=== PATIENT | female | born 1955 | race Caucasian/White ===

== ENCOUNTER → 2016-04-11 | Outpatient (CLI) | payer OTHER | LOC: FIMAGING 16:00 | PROVIDERS: ATTEND Family Medicine | DX: R91.8 Other nonspecific abnormal finding of lung field (principal); Z85.42 Personal history of malignant neoplasm of other parts of uterus ==

== ENCOUNTER → 2016-04-18 | Outpatient (CLI) | payer OTHER ==
[~2016-04-18] MED LIST: IOPAMIDOL (ISOVUE-300) 100 ML BTL IV ONE
== END ==
LOC: FIMAGING 08:30
PROVIDERS: ATTEND Family Medicine
DX: R91.8 Other nonspecific abnormal finding of lung field (principal); J90 Pleural effusion, not elsewhere classified
CPT/HCPCS: Q9967

== ENCOUNTER 2016-04-27 06:47 | Day surgery (SDC) | payer OTHER ==
[2016-04-27] MEDS ORDERED: NS 1,000 ML IV SCH (07:15)
[2016-04-27 07:36] LABS: HEMATOCRIT 42.3 % (38.0-47.0)
[2016-04-27 07:49] LABS: APTT 29.2 SEC (23.0-38.0); INR 0.96 (0.83-1.16); PROTIME(PATIENT) 12.7 SEC (12.0-15.0)
[2016-04-27] MEDS ORDERED: FLUMAZENIL 0.5 MG/5 ML MDV IVP ONE (08:25)
[2016-04-27] MEDS ORDERED: fentaNYL 100 MCG/2 ML INJ ONE (08:26)
[2016-04-27] MEDS ORDERED: NALOXONE HCL 0.4 MG/ML INJ ONE (08:26)
[2016-04-27] MEDS ORDERED: ONDANSETRON 4 MG/2 ML VIAL ONE (08:26)
[2016-04-27] MEDS ORDERED: MIDAZOLAM 2 MG/2 ML VIAL ONE (08:27)
[2016-04-27] MEDS ORDERED: LIDOCAINE 1% 30 ML SDV ONE (08:29)
[2016-04-27] MEDS ORDERED: HYDROCODONE/APAP 5/325 TAB PO PRN (10:56)
[2016-04-27] MEDS ORDERED: ONDANSETRON 4 MG/2 ML VIAL IVP PRN (10:56)
== END 2016-04-27 13:05 | disposition home or self-care (01) ==
LOC: FIMAGING 06:47
PROVIDERS: ATTEND Radiology Diagnostic Radiology
PROC: 0BBF3ZX Excision of Right Lower Lung Lobe, Percutaneous Approach, Diagnostic (ICD-10-PCS; principal; 2016-04-27 10:15)
DX: C7A.1 Malignant poorly differentiated neuroendocrine tumors (principal); C78.00 Secondary malignant neoplasm of unspecified lung; Z85.42 Personal history of malignant neoplasm of other parts of uterus
CPT/HCPCS: J2250; J2310; J2405; J3010

== ENCOUNTER → 2016-05-01 | Outpatient (CLI) | payer OTHER | LOC: FIMAGING 08:45 | PROVIDERS: ATTEND Family Medicine | DX: C78.01 Secondary malignant neoplasm of right lung (principal); R13.10 Dysphagia, unspecified; I70.0 Atherosclerosis of aorta; Z85.9 Personal history of malignant neoplasm, unspecified | CPT/HCPCS: Q9967 ==

== ENCOUNTER → 2016-05-05 | Day surgery (SDC) | payer OTHER | END | disposition home or self-care (01) | LOC: FIMAGING 13:16 | PROVIDERS: ATTEND Internal Medicine Hematology & Oncology | PROC: 02HV33Z Insertion of Infusion Device into Superior Vena Cava, Percutaneous Approach (ICD-10-PCS; principal; 2016-05-05) | DX: C34.90 Malignant neoplasm of unspecified part of unspecified bronchus or lung (principal) | CPT/HCPCS: 36569; 77001; C1751 ==

== ENCOUNTER → 2016-05-05 | Outpatient (CLI) | payer OTHER ==
[~2016-05-05] MED LIST changes: +GADOBUTROL 10 ML VIAL IVP ONE; -IOPAMIDOL (ISOVUE-300) 100 ML BTL IV ONE
== END ==
LOC: FIMAGING 16:53
PROVIDERS: ATTEND Internal Medicine Hematology & Oncology
DX: C79.89 Secondary malignant neoplasm of other specified sites (principal); C34.90 Malignant neoplasm of unspecified part of unspecified bronchus or lung
CPT/HCPCS: A9585

== ENCOUNTER 2016-05-25 09:17 | Day surgery (SDC) | payer OTHER ==
[~2016-05-25 09:17] MED LIST changes: +CEFAZOLIN 2 GM/DEXTROSE/100 ML BAG IV ONE; -GADOBUTROL 10 ML VIAL IVP ONE; +LIDOCAINE 1% 2 ML INJ ONE; +ceFAZolin 2 GM/DEXTROSE 100 ML IV ONE
[2016-05-25] MEDS ORDERED: BUPIVACAINE 0.5% 30 ML SDV ONE (09:23)
[2016-05-25] MEDS ORDERED: SODIUM BICARBONATE 10 MEQ/10 ML SYR IVP ONE (09:23)
[2016-05-25] MEDS ORDERED: LIDOCAINE 1% 30 ML SDV ONE (09:23)
[2016-05-25 09:45] LABS: ADD DIFF? YES; ADD MORPH? NO; ATYPICAL LYMPHOCYTE FLAG 0 (0-99); FRAGMENT RBC FLAG 0 (0-99); HEMATOCRIT 38.3 % (38.0-47.0); HEMOGLOBIN 12.7 g/dL (12.6-16.3); LEFT SHIFT FLG 10 (0-99); LIPEMIA HEMOLYSIS FLAG 80 (0-99); MEAN CELL HEMOGLOBIN 28.5 pg (27.9-34.1); MEAN CELL HEMOGLOBIN CONCENTR. 33.2 g/dL (32.4-36.7); MEAN CELL VOLUME 86.1 fL (81.5-99.8); MEAN PLATELET VOLUME 8.9 fL (8.7-11.7); PLATELET CLUMPS FLAG 0 (0-99); PLATELET COUNT 303 10^3/uL (150-400); RED BLOOD CELL COUNT 4.45 10^6/uL (4.18-5.33); RED CELL DISTRIBUTION WIDTH 13.9 % (11.5-15.2)
[2016-05-25 09:49] LABS: ADD SCAN? NO; SCAN NEGATIVE
[2016-05-25] MEDS ORDERED: PROPOFOL 200 MG/20 ML VIAL ONE ×2 (10:38→11:30)
[2016-05-25] MEDS ORDERED: fentaNYL 100 MCG/2 ML INJ ONE ×2 (10:38→12:23)
[2016-05-25] MEDS ORDERED: CEFAZOLIN 1 GM/DEXTROSE/50 ML BAG IV ONE (12:17)
[2016-05-25 12:57] LABS: PLATELET ESTIMATE ADEQUATE (ADEQ)
[2016-05-25 13:02] LABS: LARGE PLATELETS PRESENT
== END 2016-05-25 14:10 | disposition home or self-care (01) ==
LOC: FSGY 09:17
PROVIDERS: ATTEND Surgery
PROC: 02HV33Z Insertion of Infusion Device into Superior Vena Cava, Percutaneous Approach (ICD-10-PCS; principal; 2016-05-25 11:00)
DX: C7A.8 Other malignant neuroendocrine tumors (principal); K21.9 Gastro-esophageal reflux disease without esophagitis; E78.5 Hyperlipidemia, unspecified; G47.00 Insomnia, unspecified; E22.2 Syndrome of inappropriate secretion of antidiuretic hormone; Z85.42 Personal history of malignant neoplasm of other parts of uterus
CPT/HCPCS: C1788; J0690; J1642; J2704; J3010

== ENCOUNTER → 2016-07-05 | Outpatient (CLI) | payer OTHER ==
[~2016-07-05] MED LIST changes: -CEFAZOLIN 2 GM/DEXTROSE/100 ML BAG IV ONE; +IOPAMIDOL (ISOVUE-300) 100 ML BTL ONE; -LIDOCAINE 1% 2 ML INJ ONE; -ceFAZolin 2 GM/DEXTROSE 100 ML IV ONE
== END ==
LOC: FIMAGING 09:35
PROVIDERS: ATTEND Nurse Practitioner
DX: C79.51 Secondary malignant neoplasm of bone (principal); K57.30 Diverticulosis of large intestine without perforation or abscess without bleeding; I70.0 Atherosclerosis of aorta; C54.1 Malignant neoplasm of endometrium; Z85.118 Personal history of other malignant neoplasm of bronchus and lung; Z92.21 Personal history of antineoplastic chemotherapy
CPT/HCPCS: J1642; Q9967

== ENCOUNTER → 2016-09-07 | Outpatient (CLI) | payer OTHER | LOC: FIMAGING 15:52 | PROVIDERS: ATTEND Nurse Practitioner | DX: Z08 Encounter for follow-up examination after completed treatment for malignant neoplasm (principal); C79.51 Secondary malignant neoplasm of bone; R91.8 Other nonspecific abnormal finding of lung field; Z92.21 Personal history of antineoplastic chemotherapy; Z85.118 Personal history of other malignant neoplasm of bronchus and lung; Z85.42 Personal history of malignant neoplasm of other parts of uterus; Z87.891 Personal history of nicotine dependence | CPT/HCPCS: Q9967 ==

== ENCOUNTER → 2016-10-03 | Outpatient (CLI) | payer OTHER | LOC: FIMAGING 13:56 → EDSTATUS 13:57 | PROVIDERS: ATTEND Internal Medicine Hematology & Oncology | DX: S42.254A Nondisplaced fracture of greater tuberosity of right humerus, initial encounter for closed fracture (principal); Z85.118 Personal history of other malignant neoplasm of bronchus and lung; Z85.42 Personal history of malignant neoplasm of other parts of uterus ==

== ENCOUNTER → 2016-11-17 | Outpatient (CLI) | payer OTHER | LOC: FIMAGING 08:44 | PROVIDERS: ATTEND Internal Medicine Hematology & Oncology | DX: C79.51 Secondary malignant neoplasm of bone (principal); C54.1 Malignant neoplasm of endometrium; C78.01 Secondary malignant neoplasm of right lung | CPT/HCPCS: 71260; 74177; 78306; A9503; Q9967 ==

== ENCOUNTER → 2017-02-15 | Outpatient (CLI) | payer OTHER ==
[~2017-02-15] MED LIST changes: +GADOBUTROL 10 ML VIAL IVP ONE; -IOPAMIDOL (ISOVUE-300) 100 ML BTL ONE
== END ==
LOC: FIMAGING 15:12
PROVIDERS: ATTEND Internal Medicine Hematology & Oncology
DX: C34.31 Malignant neoplasm of lower lobe, right bronchus or lung (principal); C79.31 Secondary malignant neoplasm of brain; C54.1 Malignant neoplasm of endometrium; G93.5 Compression of brain
CPT/HCPCS: A9585

== ENCOUNTER → 2017-04-03 | Outpatient (CLI) | payer OTHER ==
[~2017-04-03] MED LIST changes: -GADOBUTROL 10 ML VIAL IVP ONE; +IOPAMIDOL (ISOVUE-300) 100 ML BTL ONE
== END ==
LOC: FIMAGING 14:08
PROVIDERS: ATTEND Internal Medicine Hematology & Oncology
DX: C34.31 Malignant neoplasm of lower lobe, right bronchus or lung (principal); C54.1 Malignant neoplasm of endometrium; C79.51 Secondary malignant neoplasm of bone; R59.1 Generalized enlarged lymph nodes; J98.11 Atelectasis
CPT/HCPCS: Q9967

== ENCOUNTER → 2017-05-18 | Outpatient (CLI) | payer OTHER ==
[~2017-05-18] MED LIST changes: +GADOBUTROL 10 ML VIAL IVP ONE
== END ==
LOC: FIMAGING 14:37
PROVIDERS: ATTEND Internal Medicine Hematology & Oncology
DX: Z08 Encounter for follow-up examination after completed treatment for malignant neoplasm (principal); C79.31 Secondary malignant neoplasm of brain; C79.82 Secondary malignant neoplasm of genital organs; C34.31 Malignant neoplasm of lower lobe, right bronchus or lung; Z79.899 Other long term (current) drug therapy
CPT/HCPCS: A9585; Q9967

== ENCOUNTER → 2017-08-10 | Outpatient (CLI) | payer OTHER ==
[~2017-08-10] MED LIST changes: -GADOBUTROL 10 ML VIAL IVP ONE
== END ==
LOC: FIMAGING 13:05
PROVIDERS: ATTEND Internal Medicine Hematology & Oncology
DX: I26.99 Other pulmonary embolism without acute cor pulmonale (principal); R59.9 Enlarged lymph nodes, unspecified; C79.51 Secondary malignant neoplasm of bone; C54.1 Malignant neoplasm of endometrium; C34.31 Malignant neoplasm of lower lobe, right bronchus or lung
CPT/HCPCS: Q9967

== ENCOUNTER → 2017-10-19 | Outpatient (CLI) | payer OTHER | LOC: FIMAGING 11:36 | PROVIDERS: ATTEND Internal Medicine Hematology & Oncology | DX: C54.1 Malignant neoplasm of endometrium (principal); C34.31 Malignant neoplasm of lower lobe, right bronchus or lung | CPT/HCPCS: Q9967 ==

== ENCOUNTER → 2017-12-19 | Outpatient (CLI) | payer OTHER | LOC: FIMAGING 09:11 | PROVIDERS: ATTEND Internal Medicine Hematology & Oncology | DX: R91.1 Solitary pulmonary nodule (principal); C34.31 Malignant neoplasm of lower lobe, right bronchus or lung; C77.1 Secondary and unspecified malignant neoplasm of intrathoracic lymph nodes; C79.51 Secondary malignant neoplasm of bone; C54.1 Malignant neoplasm of endometrium; K76.89 Other specified diseases of liver ==

== ENCOUNTER 2018-02-03 15:22 | Inpatient (IN) | payer OTHER ==
--- NOTE | 2018-02-03 15:46 | EDPHY ---
HPI/HX/ROS/PE/MDM Narrative: CHIEF COMPLAINT: Lethargy, weakness HISTORY OF PRESENT ILLNESS: The patient is an anticoagulated 62 y/o female with a history of metastatic lung cancer currently treated with Opdivo infusions arriving with her complaining of pronounced weakness and lethargy upon waking this morning. She was diagnosed with lung cancer in March of 2016 and subsequent scans showed metastases to bone and brain. She has undergone multiple rounds of chemotherapy and started twice monthly Opdivo infusions this October. She says the Opdivo "has gotten rid of all the tumors. " At her last infusion appointment on , 3 days ago, her BGL was elevated in the 400s when it is usually in the 80s. Her oncologist, Dr. Gonzalez, said diabetes is a rare side effect of Opdivo treatment and started her on Metformin at that time. She is scheduled to follow up with him in 2 days. Today , she says, "I got up and just felt horrible. I feel like I had the cancer again. I was weak. I couldn't get down the stairs." She generally has difficulty eating, but has not been able to eat or drink much at all today. She has a mild, "loose" cough in the mornings "that lasts two seconds" and denies fever or any infectious symptoms. She did have a headache this morning that improved with Tylenol. Otherwise she denies any acute severe pain. She has baseline pain in her hips, ribs, and back. Her notes the patient has been obsessive and anxious since the diabetes diagnosis and he thinks that could be contributing to her symptoms today. She did get a flu vaccination this season. She mentions her liver enzymes have been "weird" during the last several lab draws. Prior to cancer diagnosis, no history of hypertension, diabetes, respiratory disease, cardiac disease. No fever, chills, chest pain, shortness of breath, palpitations, vomiting, black or tarry stools, urinary complaints, headache, lightheadedness, acute weakness or paresthesias. No falls or recent trauma. REVIEW OF SYSTEMS: Aside from elements discussed in the HPI, a comprehensive 10-point review of systems was reviewed and is negative. Issues with constipation and diarrhea depending on which medications she is taking. 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 Oncologist: Dr. Gonzalez, previously Dr. Beasley. Prior medical records reviewed including recent [facility] labs and chest CT . VITAL SIGNS: Reviewed by me GENERAL: Well-developed, well-nourished, resting comfortably in no respiratory distress. HEENT: Atraumatic. Eyes: No icterus, no injection. Mouth: moist mucous membranes. No erythema or lesions. Neck: supple with no adenopathy. LUNGS: Clear to auscultation bilaterally, no wheezes, rhonchi or rales. CARDIAC: Regular rate and rhythm, no rubs, murmurs or gallops. ABDOMEN: Soft, nontender, nondistended, bowel sounds normal. BACK: No CVA tenderness. EXTREMITIES: No trauma. No edema. Range of motion is normal throughout. NEURO: Alert and oriented, grossly nonfocal. SKIN: Warm and dry, no rash. PSYCHIATRIC: Normal mentation, no agitation. Portions of this note were transcribed by a medical services assistant. I personally performed a history, physical exam, medical decision making, and confirmed accuracy of information the transcribed note. ED Course: This is a 62 y/o female with lung cancer currently treated with Opdivo immunotherapy who presents with lethargy, weakness, and fatigue onset this morning. She was diagnosed with Opdivo-induced diabetes 3 days ago and started on metformin by her oncologist at that time. She has a normal neurologic exam here. No overt signs of infection. Presentation could reflect side effect of the metformin or complication of her cancer. Infectious causes also considered. Plan for IV, labs, UA, flu swab, EKG. The 12 lead EKG was interpreted by myself. Nonspecific Twave abnormaliies.. See hard copy and/or "tracemaster" electronic copy for interpretation. BGL elevated at 408. 8 units SQ insulin ordered. Consulted with [employer] sales consultant oncologist for CC. Opdivo can cause autoimmune insulin- dependent diabetes and patient will require insulin for further management. He recommends admission. Reassessed patient and discussed recommendations. She agrees to admission. Spoke with hospitalist service. Dr. Gallego accepts admission. She would like us to start DKA protocol here. MDM: Diff dx considered included viral infection, electrolyte abnormality, neutropenia, hyperglycemia, DKA, acidosis, metastatic CA, medication side effect. - Data Points Laboratory Results: Laboratory Results 02/03/18 16:00 02/03/18 16:00 02/03/18 02/03/18 02/03/18 17:00 16:20 16:02 WBC RBC Hgb POC Hgb 16.0 gm/dL gm/dL (12.6-16.3) Hct POC Hct 47 % % (38-47) MCV MCH MCHC RDW Plt Count MPV Neut % (Auto) Lymph % (Auto) [place] % (Auto) Eos % (Auto) Baso % (Auto) Nucleat RBC Rel Count Absolute Neuts (auto) Absolute Lymphs (auto) Absolute Monos (auto) Absolute Eos (auto) Absolute Basos (auto) Absolute Nucleated RBC Immature Gran % Immature Gran # PT INR POC Sodium 132 mEq/L L mEq/L (135-145) Sodium POC Potassium 3.9 mEq/L mEq/L (3.3-5.0) Potassium POC Chloride 95 mEq/L L mEq/L (97-110) Chloride Carbon Dioxide Anion Gap POC BUN 11 mg/dL mg/dL (7-23) BUN Creatinine POC Creatinine 0.7 mg/dL mg/dL (0.6-1.0) Estimated GFR Glucose POC Glucose 408 mg/dL H mg/dL (70-100) Calcium Magnesium Total Bilirubin Conjugated Bilirubin Unconjugated Bilirubin AST ALT Alkaline Phosphatase Troponin I Total Protein Albumin Lipase Urine Color PALE YELLOW Urine Appearance CLEAR Urine pH 5.0 (5.0-7.5) Ur Specific [place] 1.009 (1.002-1.030) Urine Protein NEGATIVE (NEGATIVE) Urine Ketones 2+ H (NEGATIVE) Urine Blood NEGATIVE (NEGATIVE) Urine Nitrate NEGATIVE (NEGATIVE) Urine Bilirubin NEGATIVE (NEGATIVE) Urine Urobilinogen NEGATIVE EU EU (0.2-1.0) Ur Leukocyte Esterase NEGATIVE (NEGATIVE) Urine RBC 1-3 /hpf /hpf (0-3) Urine WBC 1-3 /hpf /hpf (0-3) Ur Epithelial Cells TRACE /lpf /lpf (NONE-1+) Urine Bacteria TRACE /hpf H /hpf (NONE SEEN) Urine Mucus TRACE /lpf /lpf (NONE-1+) Urine Glucose 3+ H (NEGATIVE) Nasal Influenza A PCR NEGATIVE FOR FLU A (NEGATIVE) Nasal Influenza B PCR NEGATIVE FOR FLU B (NEGATIVE) 02/03/18 02/03/18 02/03/18 16:00 16:00 16:00 WBC 5.44 10^3/uL 10^3/uL (3.80-9.50) RBC 5.04 10^6/uL 10^6/uL (4.18-5.33) Hgb 14.8 g/dL g/dL (12.6-16.3) POC Hgb Hct 43.3 % % (38.0-47.0) POC Hct MCV 85.9 fL fL (81.5-99.8) MCH 29.4 pg pg (27.9-34.1) MCHC 34.2 g/dL g/dL (32.4-36.7) RDW 13.2 % % (11.5-15.2) Plt Count 150 10^3/uL 10^3/uL (150-400) MPV 9.8 fL fL (8.7-11.7) Neut % (Auto) 64.2 % % (39.3-74.2) Lymph % (Auto) 26.3 % % (15.0-45.0) [place] % (Auto) 8.1 % % (4.5-13.0) Eos % (Auto) 0.6 % % (0.6-7.6) Baso % (Auto) 0.6 % % (0.3-1.7) Nucleat RBC Rel Count 0.0 % % (0.0-0.2) Absolute Neuts (auto) 3.50 10^3/uL 10^3/uL (1.70-6.50) Absolute Lymphs (auto) 1.43 10^3/uL 10^3/uL (1.00-3.00) Absolute Monos (auto) 0.44 10^3/uL 10^3/uL (0.30-0.80) Absolute Eos (auto) 0.03 10^3/uL 10^3/uL (0.03-0.40) Absolute Basos (auto) 0.03 10^3/uL 10^3/uL (0.02-0.10) Absolute Nucleated RBC 0.00 10^3/uL 10^3/uL (0-0.01) Immature Gran % 0.2 % % (0.0-1.1) Immature Gran # 0.01 10^3/uL 10^3/uL (0.00-0.10) PT 20.5 SEC H SEC (12.0-15.0) INR 1.75 H (0.83-1.16) POC Sodium Sodium 134 mEq/L L mEq/L (135-145) POC Potassium Potassium 4.3 mEq/L mEq/L (3.5-5.2) POC Chloride Chloride 96 mEq/L L mEq/L (97-110) Carbon Dioxide 20 mEq/l L mEq/l (22-31) Anion Gap 18 mEq/L H mEq/L (6-14) POC BUN BUN 13 mg/dL mg/dL (7-23) Creatinine 0.7 mg/dL mg/dL (0.6-1.0) POC Creatinine Estimated GFR > 60 Glucose 390 mg/dL H mg/dL (70-100) POC Glucose Calcium 8.8 mg/dL mg/dL (8.5-10.4) Magnesium 1.9 mg/dL mg/dL (1.6-2.3) Total Bilirubin 0.8 mg/dL mg/dL (0.1-1.4) Conjugated Bilirubin 0.4 mg/dL mg/dL (0.0-0.5) Unconjugated Bilirubin 0.4 mg/dL mg/dL (0.0-1.1) AST 32 IU/L IU/L (14-46) ALT 101 IU/L H IU/L (9-52) Alkaline Phosphatase 59 IU/L IU/L (38-126) Troponin I < 0.012 ng/mL ng/mL (0.000-0.034) Total Protein 6.4 g/dL g/dL (6.3-8.2) Albumin 4.3 g/dL g/dL (3.5-5.0) Lipase 23 IU/L IU/L (23-300) Urine Color Urine Appearance Urine pH Ur Specific [place] Urine Protein Urine Ketones Urine Blood Urine Nitrate Urine Bilirubin Urine Urobilinogen Ur Leukocyte Esterase Urine RBC Urine WBC Ur Epithelial Cells Urine Bacteria Urine Mucus Urine Glucose Nasal Influenza A PCR Nasal Influenza B PCR Medications Given: Discontinued Medications Insulin Human Regular (Humulin R) 8 unit IVP EDNOW ONE Stop: 02/03/18 17:13 Last Admin: 02/03/18 17:57 Dose: 8 unit Point of Care Test Results: Chemistry 02/03/18 16:02 POC Sodium 132 mEq/L L mEq/L (135-145) POC Potassium 3.9 mEq/L mEq/L (3.3-5.0) POC Chloride 95 mEq/L L mEq/L (97-110) POC BUN 11 mg/dL mg/dL (7-23) POC Creatinine 0.7 mg/dL mg/dL (0.6-1.0) POC Glucose 408 mg/dL H mg/dL (70-100) ISTAT H&H 02/03/18 16:02 POC Hgb 16.0 gm/dL gm/dL (12.6-16.3) POC Hct 47 % % (38-47) General Time Seen by Provider: 02/03/18 15:35 Initial Vital Signs: Initial Vital Signs Temperature (C) 36.7 C 02/03/18 15:26 Heart Rate 87 02/03/18 15:26 Respiratory Rate 16 02/03/18 15:26 Blood Pressure 102/89 H 02/03/18 15:26 O2 Sat (%) 97 02/03/18 15:26 O2 Delivery Mode Room Air Allergies/Adverse Reactions: amoxicillin trihydrate [From Augmentin] Allergy (Intermediate, Verified 16:47) Vomiting potassium clavulanate [From Augmentin] Allergy (Intermediate, Verified 05/24/16 16:47) Vomiting aspirin Allergy (Verified 05/24/16 16:47) dexamethasone Allergy (Verified 02/03/18 15:25) Home Medications: Medication Instructions Recorded Acetaminophen [Tylenol ES 500 mg 1,000 mg PO Q6 PRN 02/03/18 (*)] Bisacodyl [Bisacodyl (*)] 5 - 10 mg PO DAILY PRN 02/03/18 Cholecalciferol Vit D3 [Vitamin D3 0.5 tab PO DAILY 02/03/18 (*)] Estring 1 unit VG Q90D 02/03/18 LORazepam [Ativan (*)] 2 mg PO Q12H PRN 02/03/18 Magnesium Oxide [Magnesium Oxide 400 mg PO HS 02/03/18 400 mg (*)] Rivaroxaban [Xarelto 10mg (*)] 20 mg PO DAILY 02/03/18 Rosuvastatin Calcium [Crestor 20mg 20 mg PO HS 02/03/18 (*)] Sertraline HCl 50 mg PO HS 02/03/18 Temazepam [Restoril 15 MG (*)] 15 mg PO HSPRN PRN 02/03/18 Zoledronic Acid/Mannitol-Water 4 mg IV Q30D 02/03/18 [Zometa 4 mg/100 ml Injection] oxyCODONE CR [Oxycontin] 15 mg PO Q8 02/03/18 oxyCODONE IR [Oxycodone Ir (*)] 5 - 10 mg PO Q4 PRN 02/03/18 Insulin Glargine,Hum.rec.anlog 14 unit SQ HS #6 ml 02/05/18 [Lantus Solostar] Insulin Lispro [Humalog Kwikpen] 2 unit SQ AC #1 insuln.pen 02/05/18 Departure - Departure Disposition: [facility] Acute Clinical Impression: Hyperglycemia, Weakness DKA (diabetic ketoacidoses) Qualifiers: Diabetes mellitus type: drug or chemical induced Diabetes mellitus complication detail: without coma Qualified Code(s): E09.10 - Drug or chemical induced diabetes mellitus with ketoacidosis without coma Condition: Fair Report Scribed for: Roula Barry Report Scribed by: Kya Rose Date of Report: 02/03/18 Time of Report: 15:46
[2018-02-03] MEDS ORDERED: NS 1,000 ML IV ONE ×2 (16:30→19:22)
[2018-02-03 16:41] LABS: PLATELET COUNT 150 10^3/uL (150-400)
[2018-02-03 16:48] LABS: INR 1.75 (0.83-1.16); PROTIME(PATIENT) 20.5 SEC (12.0-15.0)
[2018-02-03] MEDS ORDERED: INSULIN REGULAR HUMAN 100 UNIT/ML UNIT IVP ONE (17:12)
[2018-02-03] MEDS ORDERED: TEMAZEPAM 15 MG CAP PO PRN (19:42)
[2018-02-03] MEDS ORDERED: ACETAMINOPHEN 500 MG TAB PO PRN (19:42)
[2018-02-03] MEDS ORDERED: BISACODYL 5 MG EC TAB PO PRN (19:42)
[2018-02-03] MEDS ORDERED: D50W 25 GM/50 ML SYR IVP PRN (19:44)
[2018-02-03] MEDS ORDERED: NS 1,000 ML IV SCH (19:45)
[2018-02-03] MEDS ORDERED: ENOXAPARIN 30 MG/0.3 ML SYR SC SCH (19:45)
[2018-02-03] MEDS ORDERED: ONDANSETRON 4 MG/2 ML VIAL IVP PRN (19:49)
--- NOTE | 2018-02-03 20:22 | GHP ---
DATE OF ADMISSION: 02/03/2018 CHIEF COMPLAINT: Fatigue. 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 She has bone and brain me tastases. She was recently started on immunotherapy in October and has had a great cancer response , although she has had persistent fatigue since starting the therapy and has not felt that great. Re cently her weakness, lethargy, and fatigue have worsened, and she has been found to have new onset di abetes likely also induced by the immunotherapy. She started metformin as an outpatient 3 days ago. She has had poor p.o. intake and has been producing lots of urine. No abdominal pain, but bowels ar e alternating between diarrhea and constipation partially due to her narcotic needs. PAST MEDICAL HISTORY: 1. Metastatic small cell lung cancer with bone and brain metastases. She was seeing Dr. Beasley but has now switched to Dr. Gonzalez. 2. Pulmonary embolus. 3. Continuous narcotic dependency for bone mets. 4. Hyperlipidemia. MEDICATIONS: Please see computerized record for full detailed list. ALLERGIES: Amoxicillin. SOCIAL HISTORY: She quit smoking in 2003, but she was a smoker for a prolonged period prior to that. No alcohol. She lives with her . REVIEW OF SYSTEMS: Complete review of systems was obtained. Review of systems negative regarding co nstitutional, HEENT, GI, pulmonary, cardiovascular, , hematology, musculoskeletal, endocrine, psych , except for positives and negatives as in HPI. FAMILY HISTORY: Reviewed, noncontributory to presenting complaint. PHYSICAL EXAMINATION: GENERAL: Well-developed, well-nourished female, in no acute distress. VITAL SIGNS: Temperature 36.7, pulse 87, blood pressure 102/89, sating 97% on room air. EYE: Normal conj unctivae. Pupils react to light. ENT: Normal ears, nose. Hearing intact. Normal teeth. Orophary nx: Moist neck. Trachea midline. No thyromegaly. CHEST: Normal respiratory effort. LUNGS: Maryellen r to auscultation bilaterally. CARDIOVASCULAR: Regular rate and rhythm. No murmur. No lower extre mity edema. ABDOMEN: Soft, nontender. No hepatosplenomegaly. SKIN: Warm, dry, intact. No rash. MUSCULOSKELETAL: No cyanosis or clubbing. Strength 5/5 upper and lower extremities. NEURO: Crani al nerves 2-12 intact. Normal sensation to light touch. PSYCH: Alert and oriented x3. Normal affe ct. Normal judgment and insight. Normal memory. LABORATORY DATA: White count 5.44, hematocrit 43.3, platelets 150. Sodium 134, potassium 4.3, chlor leatha 96, bicarb 20, BUN 13, creatinine 0.7, glucose 390. Anion gap is 18. LFTs are negative. Tropon ins negative. INR is 1.75. TEST DATA: EKG reviewed by me. My personal interpretation is anterior T-wave inversions. This case was personally discussed with Dr. Barry, emergency room physician, regarding ER course. ASSESSMENT AND PLAN: 1. New onset diabetes. Immunotherapy can cause autoimmune disease including new onset diabetes type 1. Her anion gap is 18 which is a mild elevation, but I do not think this is enough to do a full-blo wn DKA protocol. I will give her a second liter of IV fluid bolus after her 1st in the ER. She got 8 units of IV insulin in the ER. Will now start her on some Lantus as well as an insulin sliding sca le. 2. Metastatic small cell lung cancer. She has had a great response to immunotherapy with decreased tumor burden. Unfortunately, she does have known brain and bone metastases. 3. Continuous narcotic dependency secondary to bone metastases. Will continue her home dose of OxyC ontin. 4. History of pulmonary embolus. Continue Xarelto. ADMISSION STATUS: Will admit to observation. She may go home tomorrow if blood glucoses are in bett er control. DVT PROPHYLAXIS: She is low risk given her chronic anticoagulation with Xarelto. CODE STATUS: Full. /[id number]/MODL
[2018-02-03] MEDS: oxyCODONE CR 15 MG TAB PO SCH (22:03)
[2018-02-03] MEDS: MAGNESIUM OXIDE 400 MG TAB PO SCH (22:43)
[2018-02-03] MEDS: ROSUVASTATIN CALCIUM 20 MG TAB PO SCH (22:44)
[2018-02-03] MEDS: LORazepam 1 MG TAB PO PRN (22:44)
[2018-02-03] MEDS ORDERED: LIDOCAINE HCL 4% TOPICAL SOLN 50ML TP ONE (23:08)
[2018-02-03] MEDS ORDERED: LIDOCAINE 4% 15 GM CREAM TP ONE (23:30)
--- NOTE | 2018-02-03 23:39 | CPEKG ---
Test Reason : OPEN Blood Pressure : / mmHG Vent. Rate : 063 BPM Atrial Rate : 063 BPM P-R Int : 131 ms QRS Dur : 085 ms QT Int : 442 ms P-R-T Axes : 007 -14 007 degrees QTc Int : 453 ms Sinus rhythm Atrial premature complex Nonspecific T abnormalities, anterior leads Confirmed by Roula Barry ([id number]) on 02/03/2018 11:39:40 PM Referred By: Confirmed By:Roula Barry
[2018-02-03] MEDS: INSULIN GLARGINE 100 UNITS/ML UNIT SC SCH (23:41)
[2018-02-03] MEDS: INSULIN REGULAR HUMAN 100 UNIT/ML UNIT SC SCH (23:42)
[2018-02-03] MEDS: SERTRALINE HCL 50 MG TAB PO SCH (23:46)
[2018-02-04] MEDS: oxyCODONE CR 15 MG TAB PO SCH ×3 (06:29→22:06)
[2018-02-04] MEDS: INSULIN REGULAR HUMAN 100 UNIT/ML UNIT SC SCH ×4 (07:52→22:05)
[2018-02-04] MEDS: RIVAROXABAN 20 MG TAB PO SCH (08:44)
[2018-02-04] MEDS: LORazepam 1 MG TAB PO PRN (08:46)
[2018-02-04] MEDS: oxyCODONE IR 5 MG TAB PO PRN ×2 (08:46→20:06)
[2018-02-04] MEDS ORDERED: metFORMIN HCL 500 MG TAB PO SCH (09:00)
--- NOTE | 2018-02-04 09:05 | PDCONSULT ---
Panelboard Operator Note: Hematology/oncology consultation note Requesting provider: Dr. Luis Alberto Arnold Reason for consultation: Hyperglycemia with history of small cell lung cancer History of present illness: Brina is a very pleasant 62-year-old female with history of extensive stage small cell lung cancer currently receiving nivolumab who was admitted for hyperglycemia. She has a history of early stage uterine cancer back in August of 2014 status post hysterectomy. She then was diagnosed in April of 2016 with extensive stage small cell lung cancer. She was treated initially with carboplatin etoposide. She also has history of brain metastasis and received whole brain radiation therapy in February of 2017. She has since been initiated on second-line treatment with nivolumab October of 2017. Interestingly, she has demonstrated complete remission with treatment. She has received a total of 8 cycles of nivolumab the last being January 31, 2018. She states that over the last few weeks she has had decreased p.o. Intake with a documented 17 lb weight loss over the course of 2 months. She also states that she recently has been "in love with water." She most recently was seen in our clinic last week and was noted to be hyperglycemic up to the 400s which was fairly sudden onset as her previous blood sugars even 2 weeks prior were normal. She has never had history of hyperglycemia or diabetes mellitus. She then presented to the emergency room for worsening fatigue and feeling generally unwell. She is noted to have a blood glucose in the 400s. She had anion gap of 18. There were ketones in the urine. She was given IV insulin 8 units alongside Lantus 10 units. 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 She was previously working as a nurse. Family history: Father had colon cancer 868. She has a sister with history of DCIS. Allergies: Amoxicillin, potassium, aspirin, dexamethasone Review of systems: A 12 point review systems was obtained and was otherwise negative unless stated in HPI. Medications: Reviewed in zSoup Physical examination: Temp Pulse Resp BP Pulse Ox 36.4 C 72 16 105/61 98 02/04/18 08:23 02/04/18 08:23 02/04/18 08:23 02/04/18 08:23 02/04/18 08:23 General: Pleasant-appearing female appears in no acute distress HEENT: Oropharynx is clear, mucosal membranes are moist, extraocular movements are intact Pulmonary: Clear to auscultation bilaterally Cardiovascular: Regular rhythm no murmurs gallops rubs GI: Soft nontender nondistended bowel sounds are present Psych: Appropriate affect Neuro: Moving all extremities Skin: No visible skin lesions Extremities: No cyanosis clubbing or edema WBC 5.44 10^3/uL (3.80-9.50) 02/03/18 16:00 RBC 5.04 10^6/uL (4.18-5.33) 02/03/18 16:00 Hgb 14.8 g/dL (12.6-16.3) 02/03/18 16:00 POC Hgb 16.0 gm/dL (12.6-16.3) 02/03/18 19:06 Hct 43.3 % (38.0-47.0) 02/03/18 16:00 POC Hct 47 % (38-47) 02/03/18 19:06 MCV 85.9 fL (81.5-99.8) 02/03/18 16:00 MCH 29.4 pg (27.9-34.1) 02/03/18 16:00 MCHC 34.2 g/dL (32.4-36.7) 02/03/18 16:00 RDW 13.2 % (11.5-15.2) 02/03/18 16:00 Plt Count 150 10^3/uL (150-400) 02/03/18 16:00 MPV 9.8 fL (8.7-11.7) 02/03/18 16:00 Neut % (Auto) 64.2 % (39.3-74.2) 02/03/18 16:00 Lymph % (Auto) 26.3 % (15.0-45.0) 02/03/18 16:00 [place] % (Auto) 8.1 % (4.5-13.0) 02/03/18 16:00 Eos % (Auto) 0.6 % (0.6-7.6) 02/03/18 16:00 Baso % (Auto) 0.6 % (0.3-1.7) 02/03/18 16:00 Nucleat RBC Rel Count 0.0 % (0.0-0.2) 02/03/18 16:00 Absolute Neuts (auto) 3.50 10^3/uL (1.70-6.50) 02/03/18 16:00 Absolute Lymphs (auto) 1.43 10^3/uL (1.00-3.00) 02/03/18 16:00 Absolute Monos (auto) 0.44 10^3/uL (0.30-0.80) 02/03/18 16:00 Absolute Eos (auto) 0.03 10^3/uL (0.03-0.40) 02/03/18 16:00 Absolute Basos (auto) 0.03 10^3/uL (0.02-0.10) 02/03/18 16:00 Absolute Nucleated RBC 0.00 10^3/uL (0-0.01) 02/03/18 16:00 Immature Gran % 0.2 % (0.0-1.1) 02/03/18 16:00 Immature Gran # 0.01 10^3/uL (0.00-0.10) 02/03/18 16:00 PT 20.5 SEC (12.0-15.0) H 02/03/18 16:00 INR 1.75 (0.83-1.16) H 02/03/18 16:00 Puncture Site NONE GIVEN 02/03/18 23:50 Patient Temperature 37.0 DEGREES 02/03/18 23:50 VBG pH 7.32 (7.31-7.42) 02/03/18 23:50 VBG HCO3 18 mEQ/L (22-26) L 02/03/18 23:50 VBG Total CO2 19 mEq/L (21-27) L 02/03/18 23:50 VBG O2 Saturation 90 % (65-75) H 02/03/18 23:50 VBG Base Excess -7.2 mEq/L (-2.5-2.5) L 02/03/18 23:50 Mixed VBG pCO2 35 mmHg (40-44) L 02/03/18 23:50 Mixed VBG pO2 62 mmHG (35-40) H 02/03/18 23:50 POC Sodium 135 mEq/L (135-145) 02/03/18 19:06 Sodium 139 mEq/L (135-145) 02/04/18 06:30 POC Potassium 4.0 mEq/L (3.3-5.0) 02/03/18 19:06 Potassium 4.1 mEq/L (3.5-5.2) 02/04/18 06:30 POC Chloride 97 mEq/L (97-110) 02/03/18 19:06 Chloride 110 mEq/L (97-110) 02/04/18 06:30 Carbon Dioxide 22 mEq/l (22-31) 02/04/18 06:30 Anion Gap 7 mEq/L (6-14) 02/04/18 06:30 POC BUN 10 mg/dL (7-23) 02/03/18 19:06 BUN 8 mg/dL (7-23) 02/04/18 06:30 Creatinine 0.5 mg/dL (0.6-1.0) L 02/04/18 06:30 POC Creatinine 0.6 mg/dL (0.6-1.0) 02/03/18 19:06 Estimated GFR > 60 02/04/18 06:30 Glucose 115 mg/dL (70-100) H 02/04/18 06:30 POC Glucose 115 mg/dL (70-100) H 02/04/18 07:47 Calcium 8.0 mg/dL (8.5-10.4) L 02/04/18 06:30 Phosphorus 2.6 mg/dL (2.5-4.5) 02/04/18 06:30 Magnesium 2.0 mg/dL (1.6-2.3) 02/04/18 06:30 Total Bilirubin 0.8 mg/dL (0.1-1.4) 02/03/18 16:00 Conjugated Bilirubin 0.4 mg/dL (0.0-0.5) 02/03/18 16:00 Unconjugated Bilirubin 0.4 mg/dL (0.0-1.1) 02/03/18 16:00 AST 32 IU/L (14-46) 02/03/18 16:00 ALT 101 IU/L (9-52) H 02/03/18 16:00 Alkaline Phosphatase 59 IU/L (38-126) 02/03/18 16:00 Troponin I < 0.012 ng/mL (0.000-0.034) 02/03/18 16:00 Total Protein 6.4 g/dL (6.3-8.2) 02/03/18 16:00 Albumin 4.3 g/dL (3.5-5.0) 02/03/18 16:00 Lipase 23 IU/L (23-300) 02/03/18 16:00 Beta-Hydroxybutyrate 4.30 mmol/L (0.02-0.27) H 18 16:00 Urine Color PALE YELLOW 02/03/18 17:00 Urine Appearance CLEAR 02/03/18 17:00 Urine pH 5.0 (5.0-7.5) 02/03/18 17:00 Ur Specific [place] 1.009 (1.002-1.030) 02/03/18 17:00 Urine Protein NEGATIVE (NEGATIVE) 02/03/18 17:00 Urine Ketones 2+ (NEGATIVE) H 02/03/18 17:00 Urine Blood NEGATIVE (NEGATIVE) 02/03/18 17:00 Urine Nitrate NEGATIVE (NEGATIVE) 02/03/18 17:00 Urine Bilirubin NEGATIVE (NEGATIVE) 02/03/18 17:00 Urine Urobilinogen NEGATIVE EU (0.2-1.0) 18 17:00 Ur Leukocyte Esterase NEGATIVE (NEGATIVE) 02/03/18 17:00 Urine RBC 1-3 /hpf (0-3) 02/03/18 17:00 Urine WBC 1-3 /hpf (0-3) 18 17:00 Ur Epithelial Cells TRACE /lpf (NONE-1+) 02/03/18 17:00 Urine Bacteria TRACE /hpf (NONE SEEN) H 02/03/18 17:00 Urine Mucus TRACE /lpf (NONE-1+) 02/03/18 17:00 Urine Glucose 3+ (NEGATIVE) H 18 17:00 Nasal Influenza A PCR NEGATIVE FOR FLU A (NEGATIVE) 18 16:20 Nasal Influenza B PCR NEGATIVE FOR FLU B (NEGATIVE) 02/03/18 16:20 Assessment and plan: Brina is a very pleasant 62-year-old female with history of extensive stage small cell lung cancer who was admitted for hypoglycemia. 1. Hyperglycemia: She had a slight anion gap acidosis with associated ketoacidosis as measured by demonstrated by betahydroxybutyrate. Her blood sugar rapidly corrected with insulin. My current thought is that she has underlying immune related insulin deficiency. I think the likelihood of her having insulin resistant diabetes mellitus is fairly low given her documented worsening weight loss and decreased caloric intake. She also had a [facility] evaluation with serum cortisol currently pending this morning. I have recommended to her initiating insulin therapy and having her be evaluated by Endocrinology. I did explain to her that it might take some time for her to be established in Endocrinology clinic. One option would be to discharge her early with a low-dose long-acting insulin such as 10 units of Lantus. She will think about this and get back with us with regards to discharge planning. -I've ordered insulin and c-peptide levels for today 2. Extensive stage small-cell lung cancer: She has had an excellent response to nivolumab. She will follow up with Dr. Luis Armando Gonzalez at discharge. 3. Cancer related pain: Continue home OxyContin. All questions were answered. She voiced understanding the plan. She is appreciate my care today.
--- NOTE | 2018-02-04 12:26 | HOSPPROG ---
Hospitalist Progress Note Objective: Vital Signs Temp Pulse Resp BP Pulse Ox 36.4 C 69 16 134/58 H 91 L 02/04/18 11:37 02/04/18 11:37 02/04/18 11:37 02/04/18 11:37 02/04/18 11:37 Laboratory Results 02/04/18 06:30 02/03/18 02/04/18 02/05/18 05:59 05:59 05:59 Intake Total 2000 Output Total 1000 Balance 1000 PT 20.5 SEC (12.0-15.0) H 02/03/18 16:00 INR 1.75 (0.83-1.16) H 02/03/18 16:00 ICD10 Worksheet Patient Problems: Problems Problem Status Onset DKA (diabetic ketoacidoses) Acute Hyperglycemia Acute Weakness Acute
--- NOTE | 2018-02-04 12:26 | HOSPPROG ---
Hospitalist Progress Note Assessment/Plan: # DM - suspect type I - c-peptide pending - cont lanus 10U # small cell lung ca - will need to decide whether to continue with nivolumab - will follow with Dr Gonzalez # pain d/t cancer on continuous narcotics - cont oxy # hx PE - xarelto Subjective: met with patient, and son; we discussed management of DM Objective: Vital Signs Temp Pulse Resp BP Pulse Ox 36.4 C 69 16 134/58 H 91 L 02/04/18 11:37 02/04/18 11:37 02/04/18 11:37 02/04/18 11:37 02/04/18 11:37 Laboratory Results 02/04/18 06:30 02/03/18 02/04/18 02/05/18 05:59 05:59 05:59 Intake Total 2000 Output Total 1000 Balance 1000 PT 20.5 SEC (12.0-15.0) H 02/03/18 16:00 INR 1.75 (0.83-1.16) H 02/03/18 16:00 chart reviewed discussed with Dr Mathew - Physical Exam Constitutional: no apparent distress, appears nourished Cardiovascular: regular rate and rhythym, no murmur, rub, or gallop Respiratory: clear to auscultation Gastrointestinal: normoactive bowel sounds, soft, non-tender abdomen, no palpable masses ICD10 Worksheet Patient Problems: Problems Problem Status Onset DKA (diabetic ketoacidoses) Acute Hyperglycemia Acute Weakness Acute
[2018-02-04] MEDS ORDERED: GLYCERIN ADULT 1 EACH SUPP PR ONE (14:55)
[2018-02-04] MEDS ORDERED: BISACODYL 10 MG SUPP PR ONE (15:30)
[2018-02-04] MEDS: INSULIN GLARGINE 100 UNITS/ML UNIT SC SCH (22:04)
[2018-02-04] MEDS: ROSUVASTATIN CALCIUM 20 MG TAB PO SCH (22:06)
[2018-02-04] MEDS: SERTRALINE HCL 50 MG TAB PO SCH (22:06)
[2018-02-04] MEDS: MAGNESIUM OXIDE 400 MG TAB PO SCH (22:09)
[2018-02-05] MEDS: oxyCODONE CR 15 MG TAB PO SCH (05:59)
[2018-02-05 07:39] VITALS: BP 98/76
[2018-02-05] MEDS: INSULIN REGULAR HUMAN 100 UNIT/ML UNIT SC SCH ×2 (07:45→11:47)
[2018-02-05] MEDS: oxyCODONE IR 5 MG TAB PO PRN (08:42)
[2018-02-05] MEDS: RIVAROXABAN 20 MG TAB PO SCH (08:42)
--- NOTE | 2018-02-05 08:54 | PDMN ---
Medical Necessity Medical necessity: [facility] [place] [place]: new onset - hyperglycemia ( 390, 408,342 ,346), + ketonuria, in pt with extensive hx small cell lung Ca.with bone and brain mets., PMHx: PE, cont. narcotic dependency, hyperlipidemia, status changed to INPT 02/04 for ongoing monitoring and tx of DM
--- NOTE | 2018-02-05 12:04 | ASMTLACE ---
LACE Length of stay for Answers: Less than 1 day current admission Comorbidities - select Answers: Any tumor (including all that apply lymphoma or leukemia) Diabetes (uncontrolled or controlled) Other Notes: Hx of PE; HLD # of Emergency department Answers: 1-2 visits in the last 6 months Score: 5 Date Signed: 02/05/2018 12:04 PM Electronically Signed By:Kasia Sweeney RN
--- NOTE | 2018-02-05 12:06 | ASMTCMCOM ---
CM Note CM Note Notes: Patient reviewed in am rounds. Medically cleared for discharge to home with follow up. She lives independently with her in [place]. No current needs identified. CM available should needs arise. Plan: Home no needs. Date Signed: 02/05/2018 12:06 PM Electronically Signed By:Kasia Sweeney RN
--- NOTE | 2018-02-05 14:12 | GDS ---
ALL DIAGNOSES: 1. New diagnosis of diabetes, suspected type 1. 2. Small cell lung cancer. 3. Pain due to cancer, on continuous narcotics. 4. History of pulmonary embolus, on Xarelto. 5. Mild diabetic ketoacidosis. HOSPITAL COURSE: This is a 62-year-old female who was admitted with a new diagnosis of diabetes. Mai maciel had been on nivolumab. She had polyuria, polydipsia, as well as weight loss. She presented with h yperglycemia and elevated anion gap and mildly acidotic. She likely has a new diagnosis of type 1 di abetes, which can be caused by nivolumab. She had been started on metformin as an outpatient. She h as been started on insulin here. Given the fact that this is likely type 1 diabetes, would recommend that she be discharged on insulin. I have given her a total of 14 units of Lantus, as well as 2 uni ts of lispro pre-meals. She is given a prescription for a glucometer and all necessary supplies. I have personally provided her with information on how to manage her insulin, as well as concerning sym ptoms for hypoglycemia, as well as hyperglycemia. She will receive additional teaching from the [facility]. Notably, her C-peptide level is pending at the time of discharge, as well as an insulin leve l. She does not currently have a primary care physician; however, she will plan to follow up with Dr Kirill Rose as an outpatient. She will see Dr. Gonzalez as he is taking over Dr. Beasley's practice for onco logy. Sugars continue to be high. Fasting glucose today was 270, although she did not have an eleva cheryl anion gap and was not acidotic. She is otherwise discharged in stable condition with appropriate outpatient followup. STUDIES PENDING AT TIME OF DISCHARGE: 1. Insulin level. 2. C-peptide. FOLLOWUP: 1. Dr. Rose, ideally within 1 week for management of her diabetes. 2. Dr. Gonzalez for ongoing management of her small cell lung cancer. BILLING: I spent more than 30 minutes on the day of discharge coordinating care. /[id number]/MODL
== END 2018-02-05 12:40 | disposition home or self-care (01) | DRG 638 ==
LOC: F1N 21:23 → OBSVTOIN 02-04 12:23
PROVIDERS: ADMIT Internal Medicine; ATTEND Student in an Organized Health Care Education/Training Program
DX: E09.10 Drug or chemical induced diabetes mellitus with ketoacidosis without coma (principal); T45.1X5A Adverse effect of antineoplastic and immunosuppressive drugs, initial encounter; C34.90 Malignant neoplasm of unspecified part of unspecified bronchus or lung; C79.51 Secondary malignant neoplasm of bone; C79.31 Secondary malignant neoplasm of brain; F11.20 Opioid dependence, uncomplicated; Z86.711 Personal history of pulmonary embolism; Z79.01 Long term (current) use of anticoagulants; Z87.891 Personal history of nicotine dependence
CPT/HCPCS: 82435-PO; 82565-PO; 82947-PO; 83525-90; 84132-PO; 84295-PO; 84520-PO; 84681-90; 85014-PO; 96374; 97161-GP; 97165-GO; G0378; J1642; J1815

== ENCOUNTER → 2018-02-28 | Outpatient (CLI) | payer OTHER ==
[~2018-02-28] MED LIST changes: +GADOBUTROL 10 ML VIAL IVP ONE; +IOPAMIDOL (ISOVUE 370) 100 ML BTL IV ONE; -IOPAMIDOL (ISOVUE-300) 100 ML BTL ONE
== END ==
LOC: FIMAGING 14:09
PROVIDERS: ATTEND Internal Medicine Hematology & Oncology
DX: C79.51 Secondary malignant neoplasm of bone (principal); C79.31 Secondary malignant neoplasm of brain; C34.90 Malignant neoplasm of unspecified part of unspecified bronchus or lung
CPT/HCPCS: A9585; Q9967

== ENCOUNTER 2018-04-08 11:25 | Emergency (ER) | payer OTHER ==
--- NOTE | 2018-04-08 12:07 | EDPHY ---
H & P Stated Complaint: high blood sugar Time Seen by Provider: 04/08/18 11:36 HPI/ROS: CHIEF COMPLAINT: "My blood sugar is high" HISTORY OF PRESENT ILLNESS: 62-year-old female with insulin-dependent diabetes history recently diagnosed commonly due secondary to immunotherapy be secondary to small-cell lung cancer, arrives via private vehicle complaining of elevated serum glucose. Patient has a newly diagnosed history of insulin-dependent diabetes. She checked her serum glucose this morning and levels were too high to register. Contacted her the on-call primary care provider, Dr. Hema Pete recommend she come to the ER for evaluation. She denies complaints of pain or discomfort Patient has no complaints of pain or discomfort states that she is feeling well. She denies: Flu-like symptoms, fever, chills, nausea, vomiting, diarrhea , abdominal pain, chest pain, dyspnea, back pain, urinary abnormality, myalgias PRIMARY CARE PROVIDER: Dr. Yesi Rose REVIEW OF SYSTEMS: 10 systems reviewed and negative with the exception of the elements mentioned in the history of present illness PAST MEDICAL & SURGICAL HISTORY: small-cell lung cancer. PE with Xarelto therapy. SOCIAL HISTORY: nonsmoker PHYSICAL EXAM (Prior to examination, patient consented to physical exam, hands were washed and my usual and customary physical exam procedures followed) 1) GENERAL: Well-developed, well-nourished, alert and oriented. Appears to be in no acute distress. Smiling. Appears well. 2) HEAD: Normocephalic, atraumatic 3) HEENT: Pupils equal, round, reactive to light bilaterally. Sclera anicteric. Nasopharynx, oropharynx, clear, no lesions. Moist Mucous membranes. 4) NECK: Full range of motion, no meningeal signs. 5) LUNGS: Clear auscultation bilaterally, no wheezes, no rhonchi, no retractions. 6) HEART: Regular rate and rhythm, no murmur, no heave, no gallop. 7) ABDOMEN: No guarding, no rebound, no focal tenderness, negative McBurney's, negative Herman's, negative Rovsing's, negative peritoneal sign, 8) MUSCULOSKELETAL: Moving all extremities, no focal areas of tenderness, no obvious trauma. No peripheral edema or discoloration. 9) BACK: No CVA tenderness, no midline vertebral tenderness, no fluctuance, no step-off, no obvious trauma, no visual or palpable abnormality. 10) SKIN: No rash, no petechiae. 11) Psychiatric: Patient is oriented X 3, there is no agitation. DIFFERENTIAL DIAGNOSIS: In no particular order including but not limited to hyperglycemia, diabetic ketoacidosis, insulin-dependent diabetes - Medical/Surgical History Hx Asthma: No Hx Chronic Respiratory Disease: No Hx Diabetes: Yes Hx Cardiac Disease: No Hx Renal Disease: No Hx Cirrhosis: No Hx Alcoholism: No Hx HIV/AIDS: No Hx Splenectomy or Spleen Trauma: No Other PMH: Small cell lung ca mets to bone and brain, torn knee cap, PE, hyp[ erlipiemia. NIDDM 02/05 - Social History Smoking Status: Former smoker Constitutional: Initial Vital Signs Temperature (C) 36.6 C 04/08/18 11:30 Heart Rate 77 04/08/18 11:30 Respiratory Rate 16 04/08/18 11:30 Blood Pressure 116/72 04/08/18 11:30 O2 Sat (%) 96 04/08/18 11:30 O2 Delivery Mode Room Air Allergies/Adverse Reactions: amoxicillin trihydrate [From Augmentin] Allergy (Intermediate, Verified 11:26) Vomiting potassium clavulanate [From Augmentin] Allergy (Intermediate, Verified 04/08/18 11:26) Vomiting aspirin Allergy (Verified 04/08/18 11:26) dexamethasone Allergy (Verified 04/08/18 11:26) Home Medications: Medication Instructions Recorded Acetaminophen [Tylenol ES 500 mg 1,000 mg PO Q6 PRN 02/03/18 (*)] Bisacodyl [Bisacodyl (*)] 5 - 10 mg PO DAILY PRN 02/03/18 Cholecalciferol Vit D3 [Vitamin D3 0.5 tab PO DAILY 02/03/18 (*)] Estring 1 unit VG Q90D 02/03/18 LORazepam [Ativan (*)] 2 mg PO Q12H PRN 02/03/18 Magnesium Oxide [Magnesium Oxide 400 mg PO HS 02/03/18 400 mg (*)] Rivaroxaban [Xarelto 10mg (*)] 20 mg PO DAILY 02/03/18 Rosuvastatin Calcium [Crestor 20mg 20 mg PO HS 02/03/18 (*)] Sertraline HCl 50 mg PO HS 02/03/18 Temazepam [Restoril 15 MG (*)] 15 mg PO HSPRN PRN 02/03/18 Zoledronic Acid/Mannitol-Water 4 mg IV Q30D 02/03/18 [Zometa 4 mg/100 ml Injection] oxyCODONE CR [Oxycontin] 15 mg PO Q8 02/03/18 oxyCODONE IR [Oxycodone Ir (*)] 5 - 10 mg PO Q4 PRN 02/03/18 Insulin Glargine,Hum.rec.anlog 14 unit SQ HS #6 ml 02/05/18 [Lantus Solostar] Insulin Lispro [Humalog Kwikpen] 2 unit SQ AC #1 insuln.pen 02/05/18 Medical Decision Making ED Course/Re-evaluation: 12:56 p.m.: Re-evaluation. Patient continues to feel well, smiling, has no complaints. She is not acidotic. Doubt DKA. She is hyperglycemic and informed that because of her relatively recent diabetes diagnosis she is continuing to learn how to manage her insulin. At this point I do not think that hospitalization is indicated. I have agreed to give her dose of subcutaneous insulin and recommend she continue to monitor insulin. Recommend she discuss with primary care provider possibly a diabetic nurse educator consultation as she notes continuing challenges in learning how to manage her diabetes. This time I do not think that hospitalization is indicated. Discussed case with secondary supervising physician Dr. Faraz Narayan in the ER. - Data Points Laboratory Results: Laboratory Results 04/08/18 11:55 04/08/18 11:55 04/08/18 04/08/18 11:55 11:55 WBC 5.39 10^3/uL 10^3/uL (3.80-9.50) RBC 4.40 10^6/uL 10^6/uL (4.18-5.33) Hgb 13.2 g/dL g/dL (12.6-16.3) Hct 38.9 % % (38.0-47.0) MCV 88.4 fL fL (81.5-99.8) MCH 30.0 pg pg (27.9-34.1) MCHC 33.9 g/dL g/dL (32.4-36.7) RDW 13.5 % % (11.5-15.2) Plt Count 148 10^3/uL L 10^3/uL (150-400) MPV 10.5 fL fL (8.7-11.7) Neut % (Auto) 72.3 % % (39.3-74.2) Lymph % (Auto) 19.5 % % (15.0-45.0) Sac % (Auto) 7.6 % % (4.5-13.0) Eos % (Auto) 0.0 % L % (0.6-7.6) Baso % (Auto) 0.4 % % (0.3-1.7) Nucleat RBC Rel Count 0.0 % % (0.0-0.2) Absolute Neuts (auto) 3.90 10^3/uL 10^3/uL (1.70-6.50) Absolute Lymphs (auto) 1.05 10^3/uL 10^3/uL (1.00-3.00) Absolute Monos (auto) 0.41 10^3/uL 10^3/uL (0.30-0.80) Absolute Eos (auto) 0.00 10^3/uL L 10^3/uL (0.03-0.40) Absolute Basos (auto) 0.02 10^3/uL 10^3/uL (0.02-0.10) Absolute Nucleated RBC 0.00 10^3/uL 10^3/uL (0-0.01) Immature Gran % 0.2 % % (0.0-1.1) Immature Gran # 0.01 10^3/uL 10^3/uL (0.00-0.10) Sodium 128 mEq/L L mEq/L (135-145) Potassium 4.2 mEq/L mEq/L (3.5-5.2) Chloride 94 mEq/L L mEq/L (97-110) Carbon Dioxide 25 mEq/l mEq/l (22-31) Anion Gap 9 mEq/L mEq/L (6-14) BUN 22 mg/dL mg/dL (7-23) Creatinine 0.7 mg/dL mg/dL (0.6-1.0) Estimated GFR > 60 Glucose 408 mg/dL H mg/dL (70-100) Calcium 9.1 mg/dL mg/dL (8.5-10.4) Beta-Hydroxybutyrate Pending Medications Given: Discontinued Medications Heparin Sodium (Porcine) (Heparin Lock Flush) 500 unit IVP EDNOW ONE Stop: 04/08/18 13:08 Last Admin: 04/08/18 13:10 Dose: 500 unit Insulin Human Regular (Humulin R) 6 unit SC EDNOW ONE Stop: 04/08/18 12:56 Last Admin: 04/08/18 13:04 Dose: 6 units Departure - Departure Disposition: Home, Routine, Self-Care Clinical Impression: Hyperglycemia Condition: Good Instructions: Diabetic Hyperglycemia (ED) Additional Instructions: Return to the ER if you develop fever, chills, nausea, vomiting, flu-like symptoms or any other symptoms that concern you. Referrals: Yesi Rose MD [Primary Care Provider] - 1-2 days without fail
[2018-04-08 12:32] LABS: PLATELET COUNT 148 10^3/uL (150-400)
[2018-04-08] MEDS ORDERED: INSULIN REGULAR HUMAN 100 UNIT/ML UNIT SC ONE (12:55)
[2018-04-08 13:21] VITALS: BP 112/66
== END 2018-04-08 13:10 | disposition home or self-care (01) ==
DX: E10.65 Type 1 diabetes mellitus with hyperglycemia (principal); Z85.118 Personal history of other malignant neoplasm of bronchus and lung
CPT/HCPCS: 96374; J1642; J1815

== ENCOUNTER 2018-05-04 14:25 | Observation (INO) | payer OTHER ==
[2018-05-04] MEDS ORDERED: NS 1,000 ML IV ONE ×3 (14:54→17:30)
--- NOTE | 2018-05-04 14:58 | EDPHY ---
H & P Stated Complaint: Bgl 600s, abd pain, n/v/d fatigue, new insulin pump yesterday Time Seen by Provider: 05/04/18 14:40 HPI/ROS: CHIEF COMPLAINT: Nausea vomiting, elevated glucose HISTORY OF PRESENT ILLNESS: Patient is a 62-year-old female with a history of insulin-dependent diabetes. She received a insulin pump yesterday and began using for the 1st time. She has a basal rate of 0.5 unit of insulin per hour. She went to bed feeling well last night workup this morning with body aches and nausea. Her glucose was in the mid 500s. Her has given her several small boluses through the insulin pump is throughout the morning but her insulin has continued to rise. Around noon today he gave her a bolus through the pump of 12 units but when they rechecked her glucose at 1 p.m. It was over 600. She has vomited once. No fevers. No recent illness or infections. Severity: Moderate Modifying factors: Gradually worsening REVIEW OF SYSTEMS: Constitutional: denies: chills, fever, recent illness, recent injury EENTM: denies: blurred vision, double vision, nose congestion Respiratory: denies: cough, shortness of breath Cardiac: denies: chest pain, irregular heart rate, lightheadedness, palpitations Gastrointestinal/Abdominal: See HPI Genitourinary: denies: dysuria, frequency, hematuria, pain Musculoskeletal: See HPI Skin: denies: lesions, rash, jaundice, bruising Neurological: denies: headache, numbness, paresthesia, tingling, dizziness, weakness Hematologic/Lymphatic: denies: blood clots, easy bleeding, easy bruising Immunologic/allergic: denies: HIV/AIDS, transplant 10 systems reviewed and negative except as noted EXAM: GENERAL: well-nourished and in moderate distress. HEAD: Atraumatic, normocephalic. EYES: Pupils equal round and reactive to light, extraocular movements intact, sclera anicteric, conjunctiva are normal. ENT: TMs normal, nares patent, oropharynx clear without exudates. Moist mucous membranes. NECK: Normal range of motion, supple without lymphadenopathy or JVD. LUNGS: Breath sounds clear to auscultation bilaterally and equal. No wheezes rales or rhonchi. HEART: Regular rate and rhythm without murmurs, rubs or gallops. ABDOMEN: Nausea, no tenderness BACK: No CVA tenderness, no spinal tenderness, step-offs or deformities EXTREMITIES: Normal range of motion, no pitting or edema. No clubbing or cyanosis. NEUROLOGICAL: Cranial nerves II through XII grossly intact. Normal speech, normal gait. 5/5 strength, normal movement in all extremities, normal sensation , normal reflexes PSYCH: Normal mood, normal affect. SKIN: Warm, dry, normal turgor, no visible rashes or lesions. Source: Patient Exam Limitations: No limitations - Medical/Surgical History Hx Asthma: No Hx Chronic Respiratory Disease: No Hx Diabetes: Yes Hx Cardiac Disease: No Hx Renal Disease: No Hx Cirrhosis: No Hx Alcoholism: No Hx HIV/AIDS: No Hx Splenectomy or Spleen Trauma: No Other PMH: Small cell lung ca mets to bone and brain, PE,. IDDM 02/05 - Family History Significant Family History: No pertinent family hx - Social History Smoking Status: Former smoker Alcohol Use: None Constitutional: Initial Vital Signs Temperature (C) 37.0 C 05/04/18 14:29 Heart Rate 89 05/04/18 14:29 Respiratory Rate 18 05/04/18 14:29 Blood Pressure 103/60 05/04/18 14:29 O2 Sat (%) 98 05/04/18 14:29 O2 Delivery Mode Room Air Allergies/Adverse Reactions: amoxicillin trihydrate [From Augmentin] Allergy (Intermediate, Verified 11:26) Vomiting potassium clavulanate [From Augmentin] Allergy (Intermediate, Verified 04/08/18 11:26) Vomiting aspirin Allergy (Verified 04/08/18 11:26) dexamethasone Allergy (Verified 04/08/18 11:26) Home Medications: Medication Instructions Recorded Acetaminophen [Tylenol ES 500 mg 1,000 mg PO Q6 PRN 02/03/18 (*)] Bisacodyl [Bisacodyl (*)] 5 - 10 mg PO DAILY PRN 02/03/18 Cholecalciferol Vit D3 [Vitamin D3 2,000 tab PO DAILY 02/03/18 (*)] LORazepam [Ativan (*)] 2 mg PO Q12H PRN 02/03/18 Magnesium Oxide [Magnesium Oxide 400 mg PO DAILY 02/03/18 400 mg (*)] Rivaroxaban [Xarelto 10mg (*)] 20 mg PO DAILY 02/03/18 Rosuvastatin Calcium [Crestor 20mg 20 mg PO HS 02/03/18 (*)] Sertraline HCl 100 mg PO HS 02/03/18 Temazepam [Restoril 15 MG (*)] 15 mg PO HSPRN PRN 02/03/18 Docusate Sodium [Stool Softener] 100 mg PO DAILY PRN 05/04/18 Multivitamins [Multivitamin (*)] 1 each PO DAILY 05/04/18 Sennosides/Docusate Sodium 1 each PO DAILY PRN 05/04/18 [Senna-Docusate Sodium Tablet] metFORMIN HCL [Metformin HCl] 500 mg PO BID 05/04/18 oxyCODONE HCL [Oxycontin] 30 mg PO Q12H 05/04/18 oxyCODONE IR [Oxycodone Ir (*)] 10 mg PO Q4H PRN 05/04/18 Medical Decision Making ED Course/Re-evaluation: Patient is in DKA. Will admit to the ICU. Is on the DKA protocol. Spoke with Dr. Ferrell will admit to the ICU. Differential Diagnosis: Partial list of the Differential diagnosis considered include but were not limited to; DKA, hyperglycemia, dehydration, pump malfunction and although unlikely based on the history and physical exam, I also considered infection, trauma. Critical Care Time: Critical care time spent by me, Dr. Benjamin exclusive with this patient was 45 minutes, exclusive of the PA time exclusive of procedures. The organ system that was at risk was cardiovascular and I gave IV fluids, insulin, consultation and admission to prevent worsening of the patient's condition - Data Points Laboratory Results: Laboratory Results 05/04/18 15:05 05/04/18 15:05 05/04/18 05/04/18 05/04/18 15:29 15:05 15:05 WBC RBC Hgb POC Hgb 15.3 gm/dL gm/dL (12.6-16.3) Hct POC Hct 45 % % (38-47) MCV MCH MCHC RDW Plt Count MPV Neut % (Auto) Lymph % (Auto) Morris % (Auto) Eos % (Auto) Baso % (Auto) Nucleat RBC Rel Count Absolute Neuts (auto) Absolute Lymphs (auto) Absolute Monos (auto) Absolute Eos (auto) Absolute Basos (auto) Absolute Nucleated RBC Immature Gran % Immature Gran # Puncture Site Patient Temperature VBG pH VBG HCO3 VBG Total CO2 VBG O2 Saturation VBG Base Excess Mixed VBG pCO2 Mixed VBG pO2 POC Sodium 129 mEq/L L mEq/L (135-145) Sodium 130 mEq/L L mEq/L (135-145) POC Potassium 4.8 mEq/L mEq/L (3.3-5.0) Potassium 4.6 mEq/L mEq/L (3.5-5.2) POC Chloride 93 mEq/L L mEq/L (97-110) Chloride 90 mEq/L L mEq/L (97-110) Carbon Dioxide 12 mEq/l L mEq/l (22-31) POC Total CO2 15 mEq/L L mEq/L (22-31) Anion Gap 28 mEq/L H mEq/L (6-14) POC BUN 37 mg/dL H mg/dL (7-23) BUN 36 mg/dL H mg/dL (7-23) Creatinine 1.1 mg/dL H mg/dL (0.6-1.0) POC Creatinine 1.1 mg/dL H mg/dL (0.6-1.0) Estimated GFR 50 Glucose 657 mg/dL H* mg/dL (70-100) POC Glucose > 700 mg/dL H* mg/dL (70-100) Calcium 8.9 mg/dL mg/dL (8.5-10.4) Phosphorus 6.4 mg/dL H mg/dL (2.5-4.5) Magnesium 2.2 mg/dL mg/dL (1.6-2.3) Total Bilirubin 0.6 mg/dL mg/dL (0.1-1.4) Conjugated Bilirubin 0.5 mg/dL mg/dL (0.0-0.5) Unconjugated Bilirubin 0.1 mg/dL mg/dL (0.0-1.1) AST 57 IU/L H IU/L (14-46) ALT 116 IU/L H IU/L (9-52) Alkaline Phosphatase 73 IU/L IU/L (38-126) Total Protein 6.6 g/dL g/dL (6.3-8.2) Albumin 4.5 g/dL g/dL (3.5-5.0) Beta-Hydroxybutyrate TNP TNP Urine Color Urine Appearance Urine pH Ur Specific [place] Urine Protein Urine Ketones Urine Blood Urine Nitrate Urine Bilirubin Urine Urobilinogen Ur Leukocyte Esterase Urine RBC Urine WBC Ur Epithelial Cells Hyaline Casts Urine Mucus Urine Glucose 05/04/18 05/04/18 05/04/18 15:05 15:05 14:45 WBC 13.69 10^3/uL H 10^3/uL (3.80-9.50) RBC 4.44 10^6/uL 10^6/uL (4.18-5.33) Hgb 13.3 g/dL g/dL (12.6-16.3) POC Hgb Hct 42.1 % % (38.0-47.0) POC Hct MCV 94.8 fL fL (81.5-99.8) MCH 30.0 pg pg (27.9-34.1) MCHC 31.6 g/dL L g/dL (32.4-36.7) RDW 13.2 % % (11.5-15.2) Plt Count 191 10^3/uL 10^3/uL (150-400) MPV 10.8 fL fL (8.7-11.7) Neut % (Auto) 84.0 % H % (39.3-74.2) Lymph % (Auto) 9.1 % L % (15.0-45.0) Morris % (Auto) 6.0 % % (4.5-13.0) Eos % (Auto) 0.0 % L % (0.6-7.6) Baso % (Auto) 0.3 % % (0.3-1.7) Nucleat RBC Rel Count 0.0 % % (0.0-0.2) Absolute Neuts (auto) 11.50 10^3/uL H 10^3/uL (1.70-6.50) Absolute Lymphs (auto) 1.25 10^3/uL 10^3/uL (1.00-3.00) Absolute Monos (auto) 0.82 10^3/uL H 10^3/uL (0.30-0.80) Absolute Eos (auto) 0.00 10^3/uL L 10^3/uL (0.03-0.40) Absolute Basos (auto) 0.04 10^3/uL 10^3/uL (0.02-0.10) Absolute Nucleated RBC 0.00 10^3/uL 10^3/uL (0-0.01) Immature Gran % 0.6 % % (0.0-1.1) Immature Gran # 0.08 10^3/uL 10^3/uL (0.00-0.10) Puncture Site VENOUS Patient Temperature 37.0 DEGREES DEGREES VBG pH 7.21 L (7.31-7.42) VBG HCO3 13 mEQ/L L mEQ/L (22-26) VBG Total CO2 14 mEq/L L mEq/L (21-27) VBG O2 Saturation 93 % H % (65-75) VBG Base Excess -14.2 mEq/L L mEq/L (-2.5-2.5) Mixed VBG pCO2 33 mmHg L mmHg (40-44) Mixed VBG pO2 81 mmHG H mmHG (35-40) POC Sodium Sodium POC Potassium Potassium POC Chloride Chloride Carbon Dioxide POC Total CO2 Anion Gap POC BUN BUN Creatinine POC Creatinine Estimated GFR Glucose POC Glucose Calcium Phosphorus Magnesium Total Bilirubin Conjugated Bilirubin Unconjugated Bilirubin AST ALT Alkaline Phosphatase Total Protein Albumin Beta-Hydroxybutyrate Urine Color YELLOW Urine Appearance HAZY Urine pH 5.0 (5.0-7.5) Ur Specific [place] 1.021 (1.002-1.030) Urine Protein NEGATIVE (NEGATIVE) Urine Ketones 2+ H (NEGATIVE) Urine Blood NEGATIVE (NEGATIVE) Urine Nitrate NEGATIVE (NEGATIVE) Urine Bilirubin NEGATIVE (NEGATIVE) Urine Urobilinogen NEGATIVE EU EU (0.2-1.0) Ur Leukocyte Esterase NEGATIVE (NEGATIVE) Urine RBC 1-3 /hpf /hpf (0-3) Urine WBC 1-3 /hpf /hpf (0-3) Ur Epithelial Cells TRACE /lpf /lpf (NONE-1+) Hyaline Casts 5-15 /lpf /lpf (0-1) Urine Mucus TRACE /lpf /lpf (NONE-1+) Urine Glucose 3+ H (NEGATIVE) Medications Given: Acetaminophen (Tylenol) 650 mg PO Q6 PRN PRN Reason: Pain, Mild/Fever, Can Take PO Stop: 10/31/18 15:50 Last Admin: 05/04/18 17:54 Dose: 650 mg Calcium Carbonate (Tums) 500 - 1,000 mg PO Q4H PRN PRN Reason: HEARTBURN Stop: 10/31/18 18:36 Last Admin: 05/04/18 18:47 Dose: 1,000 mg Oxycodone HCl (Oxycontin) 30 mg PO Q12H SANDRO Stop: 05/14/18 18:14 Last Admin: 05/04/18 18:47 Dose: 30 mg Discontinued Medications Sodium Chloride (Ns) 1,000 mls @ 1,000 mls/hr IV EDNOW ONE PRN Reason: Protocol Stop: 05/04/18 15:53 Last Admin: 05/04/18 15:22 Dose: 1,000 mls Sodium Chloride (Ns) 1,000 mls @ 1,000 mls/hr IV EDNOW ONE PRN Reason: Protocol Stop: 05/04/18 17:39 Last Admin: 05/04/18 17:01 Dose: 1,000 mls Insulin Human Regular 100 unit / Miscellaneous Medication 1 ea/ Sodium Chloride 101 mls @ 0 mls/hr IV EDNOW ONE; Per Protocol PRN Reason: Protocol Stop: 05/04/18 15:41 Last Admin: 05/04/18 16:19 Dose: 101 mls Potassium Chloride (Potassium Cl 10 Meq (Premix)) 100 mls @ 100 mls/hr IV EDNOW ONE Stop: 05/04/18 16:58 Last Admin: 05/04/18 16:15 Dose: 100 mls Potassium Chloride (Potassium Cl 10 Meq (Premix)) 100 mls @ 100 mls/hr IV EDNOW ONE Stop: 05/04/18 16:59 Last Admin: 05/04/18 17:01 Dose: 100 mls Sodium Chloride (Ns) 1,000 mls @ 1,000 mls/hr IV ONCE ONE Stop: 05/04/18 18:29 Last Admin: 05/04/18 17:36 Dose: 1,000 mls Sodium Chloride (Ns) 500 mls @ 500 mls/hr IV ONCE ONE Stop: 05/04/18 19:29 Last Admin: 05/04/18 18:22 Dose: 500 mls Sodium Chloride (Ns) 500 mls @ 500 mls/hr IV ONCE ONE Stop: 05/04/18 20:29 Last Admin: 05/04/18 19:29 Dose: 500 mls Miscellaneous Information (Message To Rn) 1 ea MISC ONCE ONE Stop: 05/04/18 17:31 Last Admin: 05/04/18 17:56 Dose: Not Given Point of Care Test Results: Chemistry 05/04/18 15:29 POC Sodium 129 mEq/L L mEq/L (135-145) POC Potassium 4.8 mEq/L mEq/L (3.3-5.0) POC Chloride 93 mEq/L L mEq/L (97-110) POC Total CO2 15 mEq/L L mEq/L (22-31) POC BUN 37 mg/dL H mg/dL (7-23) POC Creatinine 1.1 mg/dL H mg/dL (0.6-1.0) POC Glucose > 700 mg/dL H* mg/dL (70-100) ISTAT H&H 05/04/18 15:29 POC Hgb 15.3 gm/dL gm/dL (12.6-16.3) POC Hct 45 % % (38-47) Departure - Departure Disposition: [facility] Acute Clinical Impression: DKA (diabetic ketoacidoses) Qualifiers: Diabetes mellitus type: type 1 Diabetes mellitus complication detail: without coma Qualified Code(s): E10.10 - Type 1 diabetes mellitus with ketoacidosis without coma Condition: Critical
[2018-05-04 15:26] LABS: PLATELET COUNT 191 10^3/uL (150-400)
[2018-05-04] MEDS ORDERED: INSULIN REGULAR HUMAN 100 UNIT, COSIGN. REQUIRED 1 EA in NS 100 ML IV ONE (15:40)
[2018-05-04] MEDS ORDERED: ONDANSETRON 4 MG/2 ML VIAL IVP PRN (15:51)
[2018-05-04] MEDS ORDERED: ZOLPIDEM TARTRATE 5 MG TAB PO PRN (15:51)
--- NOTE | 2018-05-04 15:51 | PDGENHP ---
History and Physical History and Physical: CC: Fatigue body aches and nausea, started new insulin pump yesterday HISTORY: This patient was diagnosed with diabetes in January, presumably due to immunotherapy for cancer. She has been using initially metformin but more recently insulin and at home started insulin pump with Humalog yesterday. She reports a basal rate of 0.5 units/hour plus boluses for meals. Previous to this she was using Basaglar 16 units at bedtime and a sliding scale of 48 units before meals depending on sugar. Today she has been feeling very poorly and has had rising glucoses through the day despite using large boluses of insulin at home. She and her report that before today she has been feeling as usual, some symptoms related to her cancer and its treatment but no symptoms of any acute illness. On the subcutaneous insulin previous to yesterday, she has been having sugar control that is been a little bit inconsistent occasionally getting up to the 300s but certainly much better than what she has had today. She had a sugar of 500 early this morning and then after giving a 12 unit bolus of Humalog via the pump her sugar was greater than 600. ROS: She has significant ongoing fatigue and still some skeletal pain related to her tumor. In particularly she mentions that she has low back pain in this spine and this is notably worsened by sitting. 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 I have reviewed the list and ordered appropriate medicines. PHYSICAL EXAMINATION: Vital Signs: All stable without fever Massage Therapy Instructor: Examination: General: alert, oriented, good mentation, looks fatigued and uncomfortable Skin: warm, dry, good color, no rash HEENT: normal Neck: no mass or jvd Resps: relaxed Lungs: clear breath sounds Heart: regular, no murmur Abdomen: soft, nondistended, nontender, +BS, no mass Upper Extremities: normal Lower Extremities: no edema, warm No Bleeding or bruising Neurologic: normal speech/language, no focal weakness IV site: looks normal LABORATORY DATA: Mignon BC elevated 13,000 otherwise unremarkable CBC INR 1.75 PH 7.2 on a venous blood gas Chemistry so far is done by a point of care device in the ER showing sodium 129 , glucose greater than 700, CO2 15 creatinine 1.1 BUN 37 RADIOLOGY STUDIES: None so far ASSESSMENT: * Acute diabetic ketoacidosis 1 day after starting on new insulin pump at home * Potassium at 4.7 will likely decrease significantly with treatment of her dehydration and metabolic acidosis and hyperglycemia * Nausea * Dehydration due to above * Acute renal insufficiency due to above * Metastatic lung cancer, small cell, on immunotherapy PLANS: * Placed in ICU under observation, but depending on how she recovers may need to changed inpatient * Aggressive IV hydration started in ER * Insulin drip started in the ER * Will continue these as well as electrolyte monitoring and replacement by DKA protocol * Once DKA is resolved sufficiently and all is stable, will switch to subcu insulin; will plan on discontinuing her back to home on subcutaneous insulin to follow up with Dr. Arriola in clinic this week to hopefully resume her pump after trouble shooting what ever was happening I have reviewed the patient's case in detail with Dr. Parmjit Benjamin I have reviewed the patient's past medical records as part of this assessment, including previous hospital admission records and outpatient clinic records
[2018-05-04] MEDS ORDERED: POTASSIUM Cl (KCl) 100 ML IV ONE ×2 (15:59→16:00)
--- NOTE | 2018-05-04 17:21 | ASMTCMCOM ---
CM Note CM Note Notes: Reviewed chart. Pt presented to the Emergency Department with nausea, vomiting, increased blood glucose - pt started on an insulin pump Sunday05/03/18. History includes IDDM, small cell cancer, lung cancer with mets to brain and bone, PE, former smoker. Pt is and lives with her in [place]. Pt admitted with DKA, weakness, hypoglycemia for further evaluation and treatment. Discharge needs remain unclear at this time. Anticipate pt will likely discharge home independently with family support when medically stable. CM will continue to follow for any potential needs. Discharge Plan: To be determined, likely independent with family support Date Signed: 05/04/2018 05:20 PM Electronically Signed By:Leticia Eubanks RN
[2018-05-04] MEDS ORDERED: INSULIN REGULAR HUMAN 100 UNIT in NS 100 ML IV SCH (17:30)
[2018-05-04] MEDS ORDERED: RN:ENTER POTASSIUM ICU PROTOCOL ON WORKLIST MISC ONE (17:30)
[2018-05-04] MEDS ORDERED: D50W 25 GM/50 ML SYR IVP PRN (17:30)
[2018-05-04] MEDS ORDERED: D10W 1,000 ML IV SCH (17:30)
[2018-05-04] MEDS ORDERED: NS 1,000 ML IV SCH (17:30)
[2018-05-04] MEDS: ACETAMINOPHEN 325 MG TAB PO PRN (17:54)
[2018-05-04] MEDS ORDERED: BISACODYL 5 MG EC TAB PO PRN (18:10)
[2018-05-04] MEDS ORDERED: DOCUSATE SODIUM 100 MG CAP PO PRN (18:10)
[2018-05-04] MEDS ORDERED: TEMAZEPAM 15 MG CAP PO PRN (18:10)
[2018-05-04] MEDS ORDERED: LORazepam 1 MG TAB PO PRN (18:10)
[2018-05-04] MEDS ORDERED: SENNOSIDES/DOCUSATE SODIUM TAB PO PRN (18:10)
[2018-05-04] MEDS ORDERED: NS 500 ML IV ONE ×2 (18:30→19:30)
[2018-05-04] MEDS ORDERED: CALCIUM CARBONATE 500 MG CHEWABLE TAB PO PRN (18:37)
[2018-05-04] MEDS: oxyCODONE CR 30 MG TAB PO SCH (18:47)
[2018-05-04] MEDS ORDERED: ROSUVASTATIN CALCIUM 20 MG TAB PO SCH (21:00)
[2018-05-04] MEDS ORDERED: SERTRALINE HCL 50 MG TAB PO SCH (21:00)
[2018-05-04] MEDS ORDERED: MELATONIN 3 MG TAB PO SCH (21:00)
[2018-05-04] MEDS: oxyCODONE IR 5 MG TAB PO PRN (21:40)
[2018-05-05] MEDS ORDERED: D5W 1,000 ML IV SCH (01:15)
[2018-05-05] MEDS ORDERED: INSULIN REGULAR HUMAN 100 UNIT in NS 100 ML IV SCH (01:30)
[2018-05-05] MEDS: oxyCODONE CR 30 MG TAB PO SCH (07:15)
[2018-05-05] MEDS: ACETAMINOPHEN 325 MG TAB PO PRN (08:33)
[2018-05-05] MEDS ORDERED: MULTIVITAMINS 1 EACH TAB PO SCH (09:00)
[2018-05-05] MEDS ORDERED: RIVAROXABAN 20 MG TAB PO SCH (09:00)
[2018-05-05] MEDS ORDERED: MAGNESIUM OXIDE 400 MG TAB PO SCH (09:00)
[2018-05-05] MEDS ORDERED: CHOLECALCIFEROL VIT D3 1,000 UNITS TAB PO SCH (09:00)
[2018-05-05] MEDS ORDERED: INSULIN GLARGINE 100 UNITS/ML UNIT SC SCH (09:15)
[2018-05-05] MEDS: oxyCODONE IR 5 MG TAB PO PRN (10:52)
[2018-05-05] MEDS ORDERED: D50W 25 GM/50 ML SYR IVP PRN (11:17)
[2018-05-05] MEDS ORDERED: INSULIN LISPRO 100 UNIT/ML SC SCH (12:00)
[2018-05-05 12:39] VITALS: BP 98/56
--- NOTE | 2018-05-05 12:57 | PDDCSUM ---
Discharge Summary Discharge Summary: Dates of service 05/04-05/05/18 Consultations: none Procedures performed: none Hospital course by problem: 62 yo F with PMH of metastatic small cell lung cancer recently started on immunotherapy with progression of DM to insulin dependent DM due to that presenting with DKA # DKA: in the setting of having been recently started on an insulin pump that does not appear to have been working properly, her gap closed overnight and her sugars have been well controlled on glargine and SSI. She notes that prior to 2 days ago she was treating her DM with glargine and SSI and was doing well with that-she plans to go back to that for now and will f/u with her trucking manager to determine what to do regarding the pump # metastatic small cell lung cancer: currently on immunotherapy, has known mets to brain, followed by oncology # THAO: in setting of DKA and resolved with IVF # chronic pain with continuous narcotic use and dependency: due to her hx of malignancy, pain has been controlled on her usual regimen # PE: continue on xarelto # HLD: continue statin DC home f/u with endocrinology Dr. Arriola and PCP for ongoing DM management > 35 min spent in dc more than half in counseling patient and her and coordinating care
--- NOTE | 2018-05-05 13:19 | ASMTDCNOTE ---
Case Management Discharge Discharge Order Complete? Answers: Yes Patient to Obtain Answers: via Family Medications Transportation Arranged Answers: Family/Friends Discharge Comments Notes: Pt care discussed in rounds, pt discharged independently with as support and to transport. Pt will follow-up in outpatient. No other CM needs identified Date Signed: 05/05/2018 01:19 PM Electronically Signed By:MEGHANN Nelson
--- NOTE | 2018-05-05 13:22 | ASMTLACE ---
LACE Length of stay for Answers: Less than 1 day current admission Acuity / Level of Answers: No Care: Did the patient have an inpatient admission? Comorbidities - select Answers: Any tumor (including all that apply lymphoma or leukemia) Diabetes (uncontrolled or controlled) Other Notes: PE, former smoker, smal l cell cancer, lung cance r wtih mets to bone and brain # of Emergency department Answers: 3-4 visits in the last 6 months Score: 7 Date Signed: 05/05/2018 01:22 PM Electronically Signed By:MEGHANN Nelson
== END 2018-05-05 13:29 | disposition home or self-care (01) ==
LOC: F2N 16:55
PROVIDERS: ADMIT Internal Medicine; ATTEND Internal Medicine
DX: T85.614A Breakdown (mechanical) of insulin pump, initial encounter (principal); E09.10 Drug or chemical induced diabetes mellitus with ketoacidosis without coma; T45.1X5A Adverse effect of antineoplastic and immunosuppressive drugs, initial encounter; Z79.4 Long term (current) use of insulin; N17.9 Acute kidney failure, unspecified; E86.0 Dehydration; G89.3 Neoplasm related pain (acute) (chronic); F11.20 Opioid dependence, uncomplicated; C34.90 Malignant neoplasm of unspecified part of unspecified bronchus or lung; C79.51 Secondary malignant neoplasm of bone; C79.31 Secondary malignant neoplasm of brain; Z85.42 Personal history of malignant neoplasm of other parts of uterus; Z86.711 Personal history of pulmonary embolism; Z79.01 Long term (current) use of anticoagulants; Z87.891 Personal history of nicotine dependence
CPT/HCPCS: G0378 ×2; 82435-PO; 82565-PO; 82947-PO; 83605-ER; 84132-PO; 84295-PO; 84520-PO; 85014-ER; 96365; J1815; J3480

== ENCOUNTER → 2018-05-10 | Outpatient (CLI) | payer OTHER ==
[~2018-05-10] MED LIST changes: -IOPAMIDOL (ISOVUE 370) 100 ML BTL IV ONE; +IOPAMIDOL (ISOVUE-300) 100 ML BTL ONE
== END ==
LOC: FIMAGING 13:55
PROVIDERS: ATTEND Internal Medicine Hematology & Oncology
DX: C34.31 Malignant neoplasm of lower lobe, right bronchus or lung (principal); C79.31 Secondary malignant neoplasm of brain; C79.51 Secondary malignant neoplasm of bone; R92.8 Other abnormal and inconclusive findings on diagnostic imaging of breast; R93.2 Abnormal findings on diagnostic imaging of liver and biliary tract
CPT/HCPCS: A9585; Q9967

== ENCOUNTER 2018-05-27 13:57 | Day surgery (SDC) | payer OTHER ==
[2018-05-27] MEDS ORDERED: LR 1,000 ML IV ONE (14:29)
[2018-05-27] MEDS ORDERED: IOTHALAMATE MEG (CONRAY) 50 ML VIAL IV ONE (15:42)
--- NOTE | 2018-05-27 15:44 | PDANEPAE ---
ANE Past Medical History - Cardiovascular History Hx Hypertension: No Hx Arrhythmias: No Hx Chest Pain: No Hx Coronary Artery / Peripheral Vascular Disease: No Hx CHF / Valvular Disease: No Hx Palpitations: No Cardiovascular History Comment: scapular and posterior back and epigastric pain - Pulmonary History Hx COPD: No Hx Asthma/Reactive Airway Disease: No Hx Recent Upper Respiratory Infection: No Hx Oxygen in Use at Home: No Hx Sleep Apnea: No Sleep Apnea Screening Result - Last Documented: Negative Pulmonary History Comment: ? PE - Neurologic History Hx Cerebrovascular Accident: No Hx Seizures: No Hx Dementia: No - Endocrine History Hx Diabetes: Yes Endocrine History Comment: type 1 brittle - Renal History Hx Renal Disorders: No - Liver History Hx Hepatic Disorders: No Hepatic History Comment: liver cysts - Neurological & Psychiatric Hx Hx Neurological and Psychiatric Disorders: Yes Neurological / Psychiatric History Comment: situational depression - Cancer History Hx Cancer: Yes Cancer History Comment: uterine CA August 2014. Lung,brain,bone mets - Congenital Disorder History Hx Congenital Disorders: No - GI History Hx Gastrointestinal Disorders: Yes Gastrointestinal History Comment: epigastric pain increases with eating. constipation - Other Health History Other Health History: bone METS. tinnitus. bruises easily - Chronic Pain History Chronic Pain: No - Surgical History Prior Surgeries: hysterectomy 08/2014, tonsilectomy, colonoscopy ANE Review of Systems Review of Systems: - Exercise capacity METS (RN): 4 METS ANE Patient History - Allergies Allergies/Adverse Reactions: amoxicillin trihydrate [From Augmentin] Allergy (Intermediate, Verified 11:24) Vomiting potassium clavulanate [From Augmentin] Allergy (Intermediate, Verified 05/24/18 11:24) Vomiting aspirin Allergy (Verified 05/24/18 11:24) dexamethasone Allergy (Verified 05/24/18 11:24) Iodinated Contrast- Oral and IV Dye Allergy (Verified 05/24/18 11:24) Anxiety - Home Medications Home Medications: Acetaminophen [Tylenol ES 500 mg (*)] 02/03/18 [Last Taken 02/03/18 09:20] Bisacodyl [Bisacodyl (*)] 02/03/18 [Last Taken 05/23/18] Cholecalciferol Vit D3 [Vitamin D3 (*)] 02/03/18 [Last Taken 05/23/18] LORazepam [Ativan (*)] 02/03/18 [Last Taken 05/04/18 11:20] Magnesium Oxide [Magnesium Oxide 400 mg (*)] 02/03/18 [Last Taken 05/23/18] Rivaroxaban [Xarelto 10mg (*)] 02/03/18 [Last Taken 05/13/18] Rosuvastatin Calcium [Crestor 20mg (*)] 02/03/18 [Last Taken 05/26/18 20:22] Sertraline HCl 02/03/18 [Last Taken 05/26/18 20:22] Temazepam [Restoril 15 MG (*)] 02/03/18 [Last Taken 05/26/18 20:22] Docusate Sodium [Stool Softener] 05/04/18 [Last Taken 05/13/18] Multivitamins [Multivitamin (*)] 05/04/18 [Last Taken 05/23/18] Sennosides/Docusate Sodium [Senna-Docusate Sodium Tablet] 05/04/18 [Last Taken Unknown] metFORMIN HCL [Metformin HCl] 05/04/18 [Last Taken 05/26/18 20:22] oxyCODONE HCL [Oxycontin] 05/04/18 [Last Taken 05/27/18 07:55] oxyCODONE IR [Oxycodone Ir (*)] 05/04/18 [Last Taken 05/27/18 13:15] Basaglar Kwikpen U-100 05/24/18 [Last Taken 05/26/18 20:30 16 units] Insulin Lispro [HumaLOG LISPRO] 05/24/18 [Last Taken 05/27/18 07:30 4 units] Lorazepam 05/27/18 [Last Taken 05/27/18 14:15] Rivaroxaban [Xarelto] 05/27/18 [Last Taken 05/23/18] - NPO status NPO Since - Liquids (Date): 05/27/18 NPO Since - Liquids (Time): 14:15 NPO Since - Solids (Date): 05/26/18 NPO Since - Solids (Time): 20:30 - Smoking Hx Smoking Status: Former smoker - Family Anes Hx Family Hx Anesthesia Complications: none ANE Labs/Vital Signs - Vital Signs Blood Pressure: 119/59 Heart Rate: 53 Respiratory Rate: 16 O2 Sat (%): 94 Height: 167.64 cm Weight: 63.957 kg ANE Physical Exam - Airway Mallampati Score: Class 1 - ASA Status ASA Status: III ANE Anesthesia Plan Anesthesia Plan: general endotracheal anesthesia
[2018-05-27] MEDS ORDERED: MIDAZOLAM 2 MG/2 ML VIAL ONE (15:45)
[2018-05-27] MEDS ORDERED: PROPOFOL 200 MG/20 ML VIAL ONE (15:46)
[2018-05-27] MEDS ORDERED: fentaNYL 100 MCG/2 ML INJ ONE (15:46)
[2018-05-27] MEDS ORDERED: METOCLOPRAMIDE 10 MG/2 ML VIAL ONE (15:48)
[2018-05-27] MEDS ORDERED: ROCURONIUM 50 MG/5 ML VIAL ONE (15:48)
[2018-05-27] MEDS ORDERED: INDOMETHACIN 50 MG SUPP PR ONE (15:49)
[2018-05-27] MEDS ORDERED: INDOMETHACIN 50 MG SUPP PR PRN (15:58)
--- NOTE | 2018-05-27 15:58 | PDGENHP ---
History & Physical Chief Complaint: epigastric pain History of Present Illness: 62 year old female presents for evaluation of increasing biliary dilation. Pertinent Past, Social, Family History: PMHx. DM, non small cell lung ca, depression. PSurghx: tonsillectomy Relevant Physical Exam: HEENT: anicteric. CV: RRR +s1s2. Lungs; CTAB. Abd: soft, nt, + bs Cardiorespiratory Assessment: ASA 3
[2018-05-27] MEDS ORDERED: NS 500 ML IV SCH (16:00)
[2018-05-27] MEDS ORDERED: ONDANSETRON 4 MG/2 ML VIAL ONE (16:24)
[2018-05-27] MEDS ORDERED: SUGAMMADEX SODIUM 200 MG/2 ML VIAL IVP ONE (16:24)
[2018-05-27] MEDS ORDERED: fentaNYL 100 MCG/2 ML INJ IVP PRN (16:47)
[2018-05-27] MEDS ORDERED: NALOXONE HCL 0.4 MG/ML INJ IVP PRN (16:47)
[2018-05-27] MEDS ORDERED: LR 500 ML IV PRN (16:47)
--- NOTE | 2018-05-27 16:52 | POSTANESTH ---
Post Anesthetic Evaluation Cardiovascular Status: Normal, Stable Respiratory Status: Normal, Stable Level of Consciousness/Mental Status: Can Participate in Eval Pain Control: Adequate, Prn Tx Ordered Nausea/Vomiting Control: Adequate, Prn Tx Ordered Complications Possibly Related to Anesthesia: None Noted
--- NOTE | 2018-05-27 17:10 | GIREPORT ---
[facility] Surgical Services - Endoscopy Department Patient Name: Brina Shi Procedure Date: 05/27/2018 3:40 PM Patient Type: Outpatient Attending MD/ ER Physician: Chidi Paulino MD Procedure: ERCP Indications: Biliary dilation on Computed Tomogram Scan Patient Profile: 62 year old female with a history of metastatic lung cancer presents fo r evaluation of increasing biliary dilation. Providers: Chidi Paulino MD Medicines: General Anesthesia, Indomethacin 100 mg [place] Complications: No immediate complications. Estimated blood loss: Minimal. Description of Procedure: After obtaining informed consent, the scope was passed under direct vis ion. Throughout the procedure, the patient's blood pressure, pulse, and oxyg en saturations were monitored continuously. The Duodenalscope was introduc ed through the mouth, and advanced to the duodenum and used to inject cont rast into the bile duct. The ERCP was accomplished without difficulty. The patient tolerated the procedure well. Findings: The lay out inspector film was normal. The esophagus was successfully intubated und er direct vision. The scope was advanced to a normal major papilla in the descending duodenum without detailed examination of the pharynx, larynx and associated structures, and upper GI tract. The upper GI tract was gross ly normal. A wire was passed into the biliary tree. The short-nosed tracti on sphincterotome was passed over the guidewire and the bile duct was then deeply cannulated. Contrast was injected. I personally interpreted the bile duct images. Ductal flow of contrast was adequate. Image quality was adequate. Contrast extended to the entire biliary tree. The main bile d uct was severely dilated. The largest diameter was 14 mm. A distal CBD stri cture of 5mm was noted. A 10 mm biliary sphincterotomy was made with a tracti on (standard) sphincterotome using pure cut current. The sphincterotomy oo zed blood. The biliary tree was swept with a 12 mm balloon starting at the bifurcation. Sludge was swept from the duct. Cells for cytology were obtained by brushing in the lower third of the main bile duct. One 10 F r by 7 cm absorbable stent was placed into the common bile duct. Bile flowed through the stent. The stent was in good position. Estimated Blood Loss: Estimated blood loss was minimal. Post Op Diagnosis: - The entire main bile duct was severely dilated. - A biliary sphincterotomy was performed. - The biliary tree was swept and sludge was found. - Distal CBD stricture. Inflammatory versus malignant? Await brushings. - Cells for cytology obtained in the lower third of the main duct. - One absorbable stent was placed into the common bile duct. Recommendation: - Discharge patient to home (with escort). - Await cytology results. - Clear liquid diet. - Continue present medications. - Repeat ERCP in 6 weeks for surveillance. - Thank you for allowing me to participate in the care of your patient. Attending Participation: I personally performed the entire procedure. Chidi Paulino MD Chidi Paulino MD 05/27/2018 5:09:46 PM This report has been signed electronicallyChidi Paulino MD Number of Addenda: 0 Note Initiated On: 05/27/2018 3:40 PM [email or web address]
[2018-05-27] MEDS ORDERED: levOFLOXACIN 500 MG/DEXTROSE/100 ML BAG IV ONE (17:41)
[2018-05-27] MEDS ORDERED: levOFLOXACIN 500 MG/DEXTROSE 100 ML IV ONE (18:00)
[2018-05-27 18:12] VITALS: BP 154/78
== END 2018-05-27 19:05 | disposition home or self-care (01) ==
LOC: FSGY 13:57
PROVIDERS: ATTEND Internal Medicine Gastroenterology
PROC: 0FD98ZX Extraction of Common Bile Duct, Via Natural or Artificial Opening Endoscopic, Diagnostic (ICD-10-PCS; principal; 2018-05-27 16:00)
PROC: BF111ZZ Fluoroscopy of Biliary and Pancreatic Ducts using Low Osmolar Contrast (ICD-10-PCS; principal; 2018-05-27 16:00)
PROC: 0F798DZ Dilation of Common Bile Duct with Intraluminal Device, Via Natural or Artificial Opening Endoscopic (ICD-10-PCS; principal; 2018-05-27 16:00)
DX: K83.1 Obstruction of bile duct (principal); C34.31 Malignant neoplasm of lower lobe, right bronchus or lung; C79.31 Secondary malignant neoplasm of brain; C79.51 Secondary malignant neoplasm of bone; Z85.42 Personal history of malignant neoplasm of other parts of uterus; Z87.891 Personal history of nicotine dependence; E09.9 Drug or chemical induced diabetes mellitus without complications; Z79.4 Long term (current) use of insulin; F43.21 Adjustment disorder with depressed mood
CPT/HCPCS: C2625; J1956; J2250; J2405; J2704; J2765; J3010; Q9961

== ENCOUNTER 2018-07-08 12:48 | Day surgery (SDC) | payer OTHER ==
[2018-07-08] MEDS ORDERED: LR 1,000 ML IV ONE (13:14)
[2018-07-08] MEDS ORDERED: LIDOCAINE 1% 2 ML INJ ID PRN (13:14)
[2018-07-08] MEDS ORDERED: MIDAZOLAM 2 MG/2 ML VIAL IVP ONE (13:50)
--- NOTE | 2018-07-08 13:52 | PDANEPAE ---
ANE Past Medical History - Cardiovascular History Hx Hypertension: No Hx Arrhythmias: No Hx Chest Pain: No Hx Coronary Artery / Peripheral Vascular Disease: No Hx CHF / Valvular Disease: No Hx Palpitations: No Cardiovascular History Comment: scapular and posterior back and epigastric pain - Pulmonary History Hx COPD: No Hx Asthma/Reactive Airway Disease: No Hx Recent Upper Respiratory Infection: No Hx Oxygen in Use at Home: No Hx Sleep Apnea: No Sleep Apnea Screening Result - Last Documented: Negative Pulmonary History Comment: PE - Neurologic History Hx Cerebrovascular Accident: No Hx Seizures: No Hx Dementia: No - Endocrine History Hx Diabetes: Yes Obesity: no Endocrine History Comment: IDDM - Renal History Hx Renal Disorders: No - Liver History Hx Hepatic Disorders: No Hepatic History Comment: liver cysts - Neurological & Psychiatric Hx Hx Neurological and Psychiatric Disorders: Yes Neurological / Psychiatric History Comment: situational depression. ANXIETY - Cancer History Hx Cancer: Yes Cancer History Comment: uterine CA August 2014. Lung,brain,bone mets - Congenital Disorder History Hx Congenital Disorders: No - GI History GERD: no Hx Gastrointestinal Disorders: Yes Gastrointestinal History Comment: epigastric pain increases with eating. constipation - Other Health History Other Health History: bone METS. tinnitus. bruises easily - Chronic Pain History Chronic Pain: Yes (HIPS,BACK AND RT SHLDR) - Surgical History Prior Surgeries: ERCP WITH STENT 05/27/2018. hysterectomy 08/2014,. tonsilectomy, . colonoscopy ANE Review of Systems Review of Systems: - Exercise capacity METS (RN): 4 METS ANE Patient History - Allergies Allergies/Adverse Reactions: amoxicillin trihydrate [From Augmentin] Allergy (Intermediate, Verified 11:24) Vomiting potassium clavulanate [From Augmentin] Allergy (Intermediate, Verified 05/24/18 11:24) Vomiting aspirin Allergy (Verified 07/08/18 13:46) Other-Enter Comments dexamethasone Allergy (Verified 07/08/18 13:46) Other-Enter Comments Iodinated Contrast- Oral and IV Dye Allergy (Verified 05/24/18 11:24) Anxiety - Home Medications Home medications: home medication list seen and reviewed Home Medications: Bisacodyl [Bisacodyl (*)] DAILY PRN 02/03/18 [Last Taken 05/23/18] Cholecalciferol Vit D3 [Vitamin D3 (*)] DAILY 02/03/18 [Last Taken 05/23/18] Magnesium Oxide [Magnesium Oxide 400 mg (*)] DAILY 02/03/18 [Last Taken 05/23/18 ] Rosuvastatin Calcium [Crestor 20mg (*)] HS 02/03/18 [Last Taken 05/26/18 20:22] Sertraline HCl HS 02/03/18 [Last Taken 05/26/18 20:22] Temazepam [Restoril 15 MG (*)] HS 02/03/18 [Last Taken 05/26/18 20:22] Docusate Sodium [Stool Softener] PO PRN 05/04/18 [Last Taken 05/13/18] Multivitamins [Multivitamin (*)] DAILY 05/04/18 [Last Taken 05/23/18] Sennosides/Docusate Sodium [Senna-Docusate Sodium Tablet] PO PRN 05/04/18 [Last Taken Unknown] metFORMIN HCL [Metformin HCl] BID 05/04/18 [Last Taken 05/26/18 20:22] oxyCODONE HCL [Oxycontin] BID 05/04/18 [Last Taken 05/27/18 07:55] oxyCODONE IR [Oxycodone Ir (*)] PO PRN 05/04/18 [Last Taken 05/27/18 13:15] Basaglar Kwikpen U-100 16 HS 05/24/18 [Last Taken 05/26/18 20:30 16 units] Insulin Lispro [HumaLOG LISPRO] TID 05/24/18 [Last Taken 05/27/18 07:30 4 units] Lorazepam PO PRN 05/27/18 [Last Taken 05/27/18 14:15] Rivaroxaban [Xarelto] DAILY 05/27/18 [Last Taken 05/23/18] - NPO status NPO Status: no food or drink >8 hours - Anes Hx Anes Hx: no prior problems - Smoking Hx Smoking Status: Former smoker - Family Anes Hx Family Hx Anesthesia Complications: none ANE Labs/Vital Signs - Vital Signs Height: 167.64 cm Weight: 63.049 kg ANE Physical Exam - Airway Neck exam: FROM Mallampati Score: Class 2 Mouth exam: normal dental/mouth exam - Pulmonary Pulmonary: no respiratory distress, no rales or rhonchi, clear to auscultation - Cardiovascular Cardiovascular: regular rate and rhythym, no murmur, rub, or gallop - ASA Status ASA Status: III ANE Anesthesia Plan Anesthesia Plan: general endotracheal anesthesia
[2018-07-08] MEDS ORDERED: IOTHALAMATE MEG (CONRAY) 50 ML VIAL IV ONE (14:03)
[2018-07-08] MEDS ORDERED: MIDAZOLAM 2 MG/2 ML VIAL ONE (14:11)
[2018-07-08] MEDS ORDERED: fentaNYL 250 MCG/5 ML INJ ONE (14:16)
[2018-07-08] MEDS ORDERED: PROPOFOL 200 MG/20 ML VIAL ONE (14:16)
[2018-07-08] MEDS ORDERED: ROCURONIUM 50 MG/5 ML VIAL ONE (14:19)
[2018-07-08] MEDS ORDERED: LIDOCAINE 2% 2 ML INJ ONE (14:19)
[2018-07-08] MEDS ORDERED: INDOMETHACIN 50 MG SUPP PR ONE (14:26)
[2018-07-08] MEDS ORDERED: NS 500 ML IV SCH (14:30)
[2018-07-08] MEDS ORDERED: INDOMETHACIN 50 MG SUPP PR PRN (14:30)
--- NOTE | 2018-07-08 14:30 | PDGENHP ---
History & Physical Chief Complaint: marilin obstruction History of Present Illness: 62 year old female presents for evaluation of biliary obstruction. Pertinent Past, Social, Family History: PMHx: DM, met breast ca. pSurgHx; Tonsillectomy, Relevant Physical Exam: HEENT: anicteric. CV: RRR +1s2. Lungs: CTAB. Abd: soft, nt, +bs Cardiorespiratory Assessment: ASA 3
[2018-07-08] MEDS ORDERED: ONDANSETRON 4 MG/2 ML VIAL IVP PRN (14:42)
[2018-07-08] MEDS ORDERED: NALOXONE HCL 0.4 MG/ML INJ IVP PRN (14:42)
[2018-07-08] MEDS ORDERED: fentaNYL 100 MCG/2 ML INJ IVP PRN (14:42)
[2018-07-08] MEDS ORDERED: LR 500 ML IV PRN (14:42)
[2018-07-08] MEDS ORDERED: PROMETHAZINE HCL 25 MG/ML INJ IVP PRN (14:42)
[2018-07-08] MEDS ORDERED: ACETAMINOPHEN 500 MG TAB PO PRN (14:42)
[2018-07-08] MEDS ORDERED: GLYCOPYRROLATE 0.2 MG/1 ML VIAL ONE ×3 (14:48→14:59)
[2018-07-08] MEDS ORDERED: NEOSTIGMINE METHYLSULFATE 10 MG/10 ML MDV ONE (14:48)
--- NOTE | 2018-07-08 15:18 | POSTANESTH ---
Post Anesthetic Evaluation Cardiovascular Status: Normal, Stable, Similar to Pre-Op Cond Respiratory Status: Normal, Stable, Similar to Pre-op Cond. Level of Consciousness/Mental Status: Can Participate in Eval, Moderately Sleepy Pain Control: Adequate, Prn Tx Ordered Nausea/Vomiting Control: Adequate, Prn Tx Ordered Complications Possibly Related to Anesthesia: None Noted
[2018-07-08 16:25] VITALS: BP 133/77
--- NOTE | 2018-07-09 07:09 | GIREPORT ---
[facility] Surgical Services - Endoscopy Department Patient Name: Brina Shi Procedure Date: 07/08/2018 1:54 PM Patient Type: Outpatient Attending MD/ ER Physician: Chidi Paulino MD Procedure: ERCP Indications: Abnormal abdominal CT, CBD stricture Patient Profile: 62 year old female presents for biliary decompression. Providers: Chidi Paulino MD Medicines: General Anesthesia, Indomethacin 100 mg [place] Complications: No immediate complications. Estimated blood loss: Minimal. Description of Procedure: After obtaining informed consent, the scope was passed under direct vis ion. Throughout the procedure, the patient's blood pressure, pulse, and oxyg en saturations were monitored continuously. The Duodenalscope was introduc ed through the mouth, and advanced to the duodenum and used to inject cont rast into the bile duct. The ERCP was accomplished without difficulty. The patient tolerated the procedure well. Findings: A biliary stent was visible on the white sugar boiler film. One stent was removed fr om the biliary tree using a snare. A wire was passed into the biliary tree . The short-nosed traction sphincterotome was passed over the guidewire and t he bile duct was then deeply cannulated. Contrast was injected. I personal ly interpreted the bile duct images. Ductal flow of contrast was adequate. Image quality was adequate. Contrast extended to the entire biliary hector e. The biliary tree was swept with a 12 mm balloon starting at the bifurca tion. Debris was swept from the duct. The distal CBD stricture appeared great ly improved. Inflammatory? Estimated Blood Loss: Estimated blood loss was minimal. Post Op Diagnosis: - One stent was removed from the biliary tree. - The biliary tree was swept and debris was found. - The patient does not want further w/u of this stricture or repeat ERC P. Recommendation: - Discharge patient to home (with escort). - Clear liquid diet. - Continue present medications. - Thank you for allowing me to participate in the care of your patient. Attending Participation: I personally performed the entire procedure. Chidi Paulino MD Chidi Paulino MD 07/09/2018 7:09:20 AM This report has been signed electronicallyChidi Paulino MD Number of Addenda: 0 Note Initiated On: 07/08/2018 1:54 PM [id number]
== END 2018-07-08 16:25 | disposition home or self-care (01) ==
LOC: FSGY 12:48
PROVIDERS: ATTEND Internal Medicine Gastroenterology
PROC: 0FD98ZX Extraction of Common Bile Duct, Via Natural or Artificial Opening Endoscopic, Diagnostic (ICD-10-PCS; principal; 2018-07-08 14:15)
PROC: BF111ZZ Fluoroscopy of Biliary and Pancreatic Ducts using Low Osmolar Contrast (ICD-10-PCS; principal; 2018-07-08 14:15)
PROC: 0FPB8DZ Removal of Intraluminal Device from Hepatobiliary Duct, Via Natural or Artificial Opening Endoscopic (ICD-10-PCS; principal; 2018-07-08 14:15)
DX: K83.1 Obstruction of bile duct (principal); Z46.59 Encounter for fitting and adjustment of other gastrointestinal appliance and device; C34.90 Malignant neoplasm of unspecified part of unspecified bronchus or lung; C79.31 Secondary malignant neoplasm of brain; C79.51 Secondary malignant neoplasm of bone; E09.9 Drug or chemical induced diabetes mellitus without complications; T45.1X5A Adverse effect of antineoplastic and immunosuppressive drugs, initial encounter; Z79.4 Long term (current) use of insulin; Z79.01 Long term (current) use of anticoagulants; Z85.42 Personal history of malignant neoplasm of other parts of uterus; Z87.891 Personal history of nicotine dependence; Z86.711 Personal history of pulmonary embolism
CPT/HCPCS: J2250; J2704; J3010; Q9961

== ENCOUNTER → 2018-07-19 | Outpatient (CLI) | payer OTHER | LOC: FIMAGING 15:13 ==

== ENCOUNTER → 2018-07-30 | Outpatient (CLI) | payer OTHER, MEDICARE | LOC: FIMAGING 11:13 ==